=== PATIENT | male | born 1950 | race Caucasian/White ===

== ENCOUNTER → 2018-02-21 | Outpatient (CLI) | payer MEDICARE ==
[2018-02-21 08:57] LABS: ALT 63 U/L (21-72); AST 66 U/L (17-59); Cholesterol 116 mg/dL (<200); HDL Cholesterol 34 mg/dL (40-60); LDL Cholesterol,Calculated 42 mg/dL (0-99); Triglycerides 200 mg/dL (<150)
== END | disposition home or self-care (01) ==
LOC: LABWHC1 08:22
PROVIDERS: ATTEND Internal Medicine Interventional Cardiology
DX: E78.2 Mixed hyperlipidemia (principal)
CPT/HCPCS: 36415; 80061; 84450; 84460

== ENCOUNTER → 2018-03-13 | Outpatient (CLI) | payer MEDICARE ==
[2018-03-13 09:51] LABS: HCT 42.7 % (39.0-53.0); MCH 37.7 pg (25.0-35.0); MCHC 35.1 g/dL (31.0-37.0); MCV 107.3 fL (80.0-100.0); Macrocytosis Moderate; Mean Platelet Volume 8.4; RBC 3.98 m/uL (4.30-5.90); RDW 14.5 % (11.5-15.5)
[2018-03-13 10:01] LABS: Anion Gap 10 mmol/L; Blood Urea Nitrogen 20 mg/dL (9-20); Carbon Dioxide 26 mmol/L (22-30); Chloride 107 mmol/L (98-107); Potassium 5.3 mmol/L (3.5-5.1); Sodium 143 mmol/L (137-145)
[2018-03-13 10:10] LABS: Platelet Count 54 k/uL (150-450)
== END | disposition home or self-care (01) ==
LOC: LABPAT 09:17
PROVIDERS: ATTEND Internal Medicine Interventional Cardiology
DX: Z01.812 Encounter for preprocedural laboratory examination (principal); I25.5 Ischemic cardiomyopathy
CPT/HCPCS: 36415; 80051; 82565; 84520; 85027

== ENCOUNTER 2018-03-29 06:23 | Day surgery (SDC) | payer MEDICARE ==
[2018-03-20 11:10] VITALS: BMI 33.0
[2018-03-29] MEDS ORDERED: SODIUM CHLORIDE 0.9% 1,000 ML in EMPTY BAG 1 BAG IV ONE (06:25)
[2018-03-29] MEDS ORDERED: ASPIRIN 325 MG TAB PO STA (06:25)
[2018-03-29] MEDS ORDERED: NITROGLYCERIN SL TABS 0.4 MG TAB SUBLINGUAL PRN (06:25)
[2018-03-29] MEDS ORDERED: ALPRAZolam 0.5 MG TAB PO PRN (06:25)
[2018-03-29] MEDS ORDERED: ATORVASTATIN 80 MG TAB PO STA (06:25)
[2018-03-29] MEDS ORDERED: ALPRAZolam 0.25 MG TAB PO PRN (06:25)
[2018-03-29 06:44] VITALS: RESP 18; TEMP 97.9
[2018-03-29 07:07] LABS: Glucose,Whole Blood 124 mg/dL (75-99)
[2018-03-29] MEDS ORDERED: LIDOCAINE 2% INJ 20 MG/ML (20 ML MDV) ONE (07:09)
[2018-03-29] MEDS ORDERED: VERAPAMIL 2.5 MG/ML 2 ML AMP ONE (07:11)
[2018-03-29] MEDS ORDERED: diphenhydrAMINE 50 MG/ML 1 ML VIAL ONE (07:24)
[2018-03-29] MEDS ORDERED: fentaNYL (PF) 50 MCG/ML 2 ML AMP ONE (07:24)
[2018-03-29] MEDS ORDERED: fentaNYL (PF) 50 MCG/ML 2 ML AMP IV ONE (07:42)
[2018-03-29] MEDS ORDERED: diphenhydrAMINE 50 MG/ML 1 ML VIAL IVP ONE (07:42)
[2018-03-29] MEDS ORDERED: LIDOCAINE 2% INJ 20 MG/ML SQ ONE (07:45)
[2018-03-29] MEDS ORDERED: VERAPAMIL SYRINGE (5 MG/10 ML) INTRAARTER ONE (07:46)
[2018-03-29] MEDS ORDERED: HEPARIN SODIUM 1,000 UN/ML (10ML VL) ONE (07:52)
[2018-03-29] MEDS ORDERED: IOPAMIDOL-370 125ML BTL INJ ONE (07:57)
[2018-03-29] MEDS ORDERED: SODIUM CHLORIDE 0.9% 1,000 ML IV SCH (08:15)
[2018-03-29] MEDS ORDERED: RX INFO: IV CONTRAST WAS GIVEN 1 EACH MISC MISCELLANE PRN (08:15)
--- NOTE | 2018-03-29 08:53 | CC ---
CARDIAC CATHETERIZATION REPORT Mr. Obrien is a 67-year-old male with known history of diabetes, hypertension, who was noted to have frequent ventricular ectopic activity and he had a myocardial perfusion imaging that revealed global hypokinesis with a fixed inferior wall defect. In view of that, recommendation made regarding cardiac catheterization. The procedure as well as the risks and the complications were discussed with the patient who is in full understanding and agreement. PROCEDURE: Patient was brought to the laboratory veterinarian in the fasting semi-sedated state after receiving fentanyl and Benadryl and achieving moderate conscious sedated state. Using Xylocaine anesthesia in the Seldinger technique, a 6-Bahamian sheath was introduced in the right radial artery. Selective right and left coronary angiography performed using 5-Bahamian 3.5 bend right and left Xiao catheter. Multiple views of the coronary artery including hemiaxial views were obtained. Following that 5-Bahamian tight pigtail catheter was introduced into the left ventricle and a 30-degree DUBON view of the left ventricle was obtained. Following that, the catheter and sheaths were removed. Hemostasis was obtained with deployment of a TR band. There was no immediate complication. Patient was returned to his room in stable condition. Of note, the patient received 5000 units of intravenous heparin as well as intra-arterial verapamil. FINDINGS: LEFT MAIN: This is a large-sized vessel bifurcating into left circumflex and left anterior descending artery. Left main coronary artery without any significant obstructive coronary artery disease. LEFT ANTERIOR DESCENDING ARTERY: This is a large-sized vessel reaching toward the apex with a wraparound apex segment giving rise to a large diagonal branch. The left anterior descending artery has mild intimal disease proximally of 10% to 20% without any evidence of high-grade stenosis. LEFT CIRCUMFLEX: This is a large nondominant vessel giving rise to 3 obtuse marginal branches. The left circumflex has mild plaque proximally of 10% to 20% without any evidence of high-grade stenosis. RIGHT CORONARY ARTERY: This is a large dominant vessel bifurcating in PDA and posterolateral segment and branches. The right coronary artery has a mild plaque approximately of 10% to 20%. The rest of the vessel has no high-grade stenosis. LEFT VENTRICULOGRAM: Left ventriculogram was performed in 30-degree DUBON view and revealed mild global hypokinesis. There was an ejection fraction 50% to 55%. There was no significant mitral regurgitation. HEMODYNAMICS: There was no gradient across the aortic valve. The left ventricle end-diastolic pressure was 14 to 16 mmHg. CONCLUSION: 1. Mild triple-vessel coronary artery disease. 2. Minimally impaired left ventricular systolic function. RECOMMENDATION: In view of finding anatomy, I recommend to continue medical therapy with aggressive coronary risk modification that has been initiated. Those findings and recommendation were discussed with the patient and his family, who are in full understanding and agreement. Duration of procedure is 14 minutes. MMODL / IJN: [id number] /
--- NOTE | 2018-03-29 08:59 | LTR ---
March 29, 2018 Re: Avinash Obrien Dear Dr. Tapia: I had the opportunity to perform cardiac catheterization on Mr. Obrien at [facility] on the 29 of March and a full copy of the procedure note will be forwarded to you. In brief, he was found to have mild triple-vessel coronary artery disease with a minimally impaired left ventricular systolic function and based on those findings, I recommended continue medical therapy with the aggressive coronary risk modification that has been initiated. Thank you again for allowing me the opportunity to participate in his care. Please feel free to call for any questions. Sincerely yours, MD PK PeñaL / BECKYN: [id number] /
[2018-03-29] MEDS ORDERED: NON-FORMULARY DRUG (Aspirin [Adult Low Dose Aspirin Ec] 81 MG) PO SCH (09:00)
[2018-03-29] MEDS ORDERED: BISOPROLOL-HCTZ 5-6.25 MG 1 EACH TAB PO SCH (09:00)
[2018-03-29] MEDS ORDERED: ATORVASTATIN 20 MG TAB PO SCH (09:00)
[2018-03-29] MEDS ORDERED: MOEXIPRIL HCL 15 MG PO SCH (09:00)
[2018-03-29 10:59] VITALS: PULSE 58
[2018-03-29 11:00] VITALS: BP 155/70
== END 2018-03-29 13:00 | disposition home or self-care (01) ==
LOC: CATHCVL 06:23
PROVIDERS: ATTEND Internal Medicine Interventional Cardiology
DX: I25.10 Atherosclerotic heart disease of native coronary artery without angina pectoris (principal); E11.9 Type 2 diabetes mellitus without complications; I49.3 Ventricular premature depolarization; E78.2 Mixed hyperlipidemia; I10 Essential (primary) hypertension; I25.5 Ischemic cardiomyopathy; Z79.82 Long term (current) use of aspirin; Z79.84 Long term (current) use of oral hypoglycemic drugs; Z79.899 Other long term (current) drug therapy
CPT/HCPCS: 93458; J2001; J1200; J3010; J1644; Q9967

== ENCOUNTER → 2018-04-23 | Outpatient (CLI) | payer MEDICARE ==
[2018-04-23 11:11] LABS: ALT 78 U/L (21-72); AST 84 U/L (17-59); Cholesterol 102 mg/dL (<200); HDL Cholesterol 39 mg/dL (40-60); LDL Cholesterol,Calculated 39 mg/dL (0-99); Triglycerides 119 mg/dL (<150)
== END | disposition home or self-care (01) ==
LOC: LABWHC1 10:29
PROVIDERS: ATTEND Internal Medicine Interventional Cardiology
DX: E78.2 Mixed hyperlipidemia (principal)
CPT/HCPCS: 36415; 80061; 84450; 84460

== ENCOUNTER → 2019-07-08 | Outpatient (CLI) | payer MEDICARE ==
[2019-07-08 18:02] LABS: African American GFR (CKD) 101.4 (60.0-200.0); Albumin/Globulin Ratio 1.43 (1.60-3.17); Anion Gap 7.1 mmol/L (4.00-12.00); BUN/Creat Ratio 21.11 Ratio (12.00-20.00); Calcium 9.2 mg/dL (8.7-10.3); Carbon Dioxide 27.9 mmol/L (21.6-31.8); Chol/HDL Ratio 3.05; Globulin 2.8 g/dL (1.6-3.3); LDL Cholesterol,Calculated 54.6 mg/dL (0.0-131.0); Total Bilirubin 2.8 mg/dL (0.2-1.2); Total Protein 6.8 g/dL (6.2-8.2); VLDL Calculation 31.4 mg/dL (5.00-40.00)
== END | disposition home or self-care (01) ==
LOC: LABWHC1 10:04
PROVIDERS: ATTEND Internal Medicine Interventional Cardiology
DX: E78.2 Mixed hyperlipidemia (principal)
CPT/HCPCS: 36415; 80053; 80061

== ENCOUNTER 2019-10-26 09:31 | Inpatient (IN) | payer MEDICARE ==
--- NOTE | 2019-10-26 09:51 | ED ---
General Adult HPI - General Chief complaint: Chest Pain Stated complaint: Chest pain Time Seen by Provider: 10/26/19 09:33 Source: patient, family, RN notes reviewed Mode of arrival: ambulatory Limitations: no limitations - History of Present Illness Initial comments: Patient is a pleasant 69-year-old male presenting to the emergency department with abdominal distention and chest discomfort and dyspnea. Symptoms have been occurring for months, getting somewhat worse. Patient admits to drinking regularly. Patient states his abdomen feels uncomfortable. Patient states he also has some discomfort of lateral lower chest. Patient states discomfort is not severe and has a difficult time describing it. Patient states he has some dyspnea that is minimal at rest but severe with exertion. No history of similar symptoms previously. - Related Data Home Medications Medication Instructions Recorded Confirmed metFORMIN HCL [Glucophage] 500 mg PO PC-SUPPER 12/22/15 03/29/18 Aspirin [Adult Low Dose Aspirin EC] 81 mg PO QAM 03/21/18 03/29/18 Atorvastatin [Lipitor] 20 mg PO DAILY 03/21/18 03/29/18 Bisoprolol-Hctz 5-6.25 mg [Ziac 1 each PO DAILY 03/21/18 03/29/18 5-6.25] Moexipril HCl [Univasc] 15 mg PO BID 03/21/18 03/29/18 metFORMIN HCL [Glucophage] 1,000 mg PO DAILY 03/21/18 03/29/18 Allergies Allergy/AdvReac Type Severity Reaction Status Date / Time No Known Allergies Allergy Verified 10/26/19 09:37 Review of Systems ROS Statement: Those systems with pertinent positive or pertinent negative responses have been documented in the HPI. ROS Other: All systems not noted in ROS Statement are negative. Constitutional: Denies: fever Eyes: Denies: eye pain ENT: Denies: ear pain Respiratory: Reports: as per HPI Cardiovascular: Reports: as per HPI Endocrine: Denies: fatigue Gastrointestinal: Reports: as per HPI. Denies: nausea, vomiting Genitourinary: Denies: dysuria Musculoskeletal: Denies: back pain Skin: Denies: rash Neurological: Denies: weakness Past Medical History Past Medical History: Cancer, Diabetes Mellitus, Hypertension, Osteoarthritis (OA), Sleep Apnea/CPAP/BIPAP History of Any Multi-Drug Resistant Organisms: None Reported Past Surgical History: Hernia Repair Additional Past Surgical History / Comment(s): COLONOSCOY, HYDROCELE REPAIR Past Anesthesia/Blood Transfusion Reactions: No Reported Reaction Past Psychological History: No Psychological Hx Reported Smoking Status: Former smoker Past Alcohol Use History: Daily Past Drug Use History: None Reported - Past Family History Mother Family Medical History: No Reported History General Exam Limitations: no limitations General appearance: alert, in no apparent distress Head exam: Present: normocephalic Eye exam: Present: conjunctival injection (Left side, patient states recent procedure, no discomfort or visual change) ENT exam: Present: normal oropharynx Neck exam: Present: normal inspection Respiratory exam: Present: normal lung sounds bilaterally Cardiovascular Exam: Present: regular rate, normal rhythm Expanded Peripheral pulses: 2+: Radial (R), Radial (L), Dorsalis Pedis (R), Dorsalis Pedis (L) GI/Abdominal exam: Present: distended. Absent: tenderness Extremities exam: Present: pedal edema (+1 on the right). Absent: calf tenderne ss Neurological exam: Present: alert Psychiatric exam: Present: normal affect, normal mood Skin exam: Present: normal color Course Vital Signs 10/26/19 10/26/19 10/26/19 09:34 11:00 11:30 Temperature 97.8 F Pulse Rate 78 77 Respiratory 18 21 Rate Blood Pressure 136/86 131/86 146/92 O2 Sat by Pulse 97 96 96 Oximetry 10/26/19 10/26/19 10/26/19 12:00 12:30 13:00 Temperature Pulse Rate Respiratory Rate Blood Pressure 140/96 137/85 118/70 O2 Sat by Pulse 96 98 98 Oximetry EKG Findings - EKG Comments: EKG Findings:: Sinus rhythm with a rate of 77. PA 146. QRS 106. QT 418. QTC 473. Normal axis. Q wave in lead III. No acute ST change. Medical Decision Making - Medical Decision Making Patient reevaluated and resting comfortably in bed. Patient family updated on results and plan. Case was discussed with Dr. Gamez, who will admit covering for Dr. Monie Rodríguez. - Lab Data Result diagrams: 10/26/19 10:58 10/26/19 10:58 Lab Results 10/26/19 10/26/19 10/26/19 Range/Units 10:58 10:58 10:58 WBC 6.7 (3.8-10.6) k/uL RBC 4.09 L (4.30-5.90) m/uL Hgb 15.1 (13.0-17.5) gm/dL Hct 45.0 (39.0-53.0) % MCV 110.1 H (80.0-100.0) fL MCH 37.1 H (25.0-35.0) pg MCHC 33.7 (31.0-37.0) g/dL RDW 13.5 (11.5-15.5) % Plt Count 90 L (150-450) k/uL Neutrophils % 77 % Lymphocytes % 9 % Monocytes % 9 % Eosinophils % 2 % Basophils % 1 % Neutrophils # 5.2 (1.3-7.7) k/uL Lymphocytes # 0.6 L (1.0-4.8) k/uL Monocytes # 0.6 (0-1.0) k/uL Eosinophils # 0.1 (0-0.7) k/uL Basophils # 0.0 (0-0.2) k/uL Manual Slide Review Performed Poikilocytosis (manual Present Macrocytosis Marked A PT (9.0-12.0) sec INR (<1.2) APTT (22.0-30.0) sec Sodium 139 (137-145) mmol/L Potassium 4.8 (3.5-5.1) mmol/L Chloride 105 (98-107) mmol/L Carbon Dioxide 20 L (22-30) mmol/L Anion Gap 14 mmol/L BUN 67 H (9-20) mg/dL Creatinine 1.40 H (0.66-1.25) mg/dL Est GFR (CKD-EPI)AfAm 59 (>60 ml/min/1.73 sqM) Est GFR (CKD-EPI)NonAf 51 (>60 ml/min/1.73 sqM) Glucose 121 H (74-99) mg/dL Calcium 9.1 (8.4-10.2) mg/dL Magnesium 2.4 H (1.6-2.3) mg/dL Total Bilirubin 2.7 H (0.2-1.3) mg/dL AST 141 H (17-59) U/L ALT 48 (4-49) U/L Alkaline Phosphatase 173 H (38-126) U/L Troponin I (0.000-0.034) ng/mL NT-Pro-B Natriuret Pep 277 pg/mL Total Protein 7.5 (6.3-8.2) g/dL Albumin 3.7 (3.5-5.0) g/dL Amylase 60 (30-110) U/L Lipase 965 H (23-300) U/L 10/26/19 10/26/19 Range/Units 10:58 10:58 WBC (3.8-10.6) k/uL RBC (4.30-5.90) m/uL Hgb (13.0-17.5) gm/dL Hct (39.0-53.0) % MCV (80.0-100.0) fL MCH (25.0-35.0) pg MCHC (31.0-37.0) g/dL RDW (11.5-15.5) % Plt Count (150-450) k/uL Neutrophils % % Lymphocytes % % Monocytes % % Eosinophils % % Basophils % % Neutrophils # (1.3-7.7) k/uL Lymphocytes # (1.0-4.8) k/uL Monocytes # (0-1.0) k/uL Eosinophils # (0-0.7) k/uL Basophils # (0-0.2) k/uL Manual Slide Review Poikilocytosis (manual Macrocytosis PT 12.4 H (9.0-12.0) sec INR 1.2 H (<1.2) APTT 25.4 (22.0-30.0) sec Sodium (137-145) mmol/L Potassium (3.5-5.1) mmol/L Chloride (98-107) mmol/L Carbon Dioxide (22-30) mmol/L Anion Gap mmol/L BUN (9-20) mg/dL Creatinine (0.66-1.25) mg/dL Est GFR (CKD-EPI)AfAm (>60 ml/min/1.73 sqM) Est GFR (CKD-EPI)NonAf (>60 ml/min/1.73 sqM) Glucose (74-99) mg/dL Calcium (8.4-10.2) mg/dL Magnesium (1.6-2.3) mg/dL Total Bilirubin (0.2-1.3) mg/dL AST (17-59) U/L ALT (4-49) U/L Alkaline Phosphatase (38-126) U/L Troponin I <0.012 (0.000-0.034) ng/mL NT-Pro-B Natriuret Pep pg/mL Total Protein (6.3-8.2) g/dL Albumin (3.5-5.0) g/dL Amylase (30-110) U/L Lipase (23-300) U/L - Radiology Data Radiology results: report reviewed (Ultrasound negative for DVT), image reviewed (Chest and abdominal x-ray shows no acute process) Disposition Clinical Impression: Ascites, Pancreatitis, Chest pain Disposition: ADMITTED IP TO THIS HOSP Is patient prescribed a controlled substance at d/c from ED?: No Referrals: Monie Tapia MD [Primary Care Provider] - 1-2 days Decision Time: 13:37
[2019-10-26 11:17] LABS: INR 1.2 (<1.2); Partial Thromboplastin Time 25.4 sec (22.0-30.0); Prothrombin Time 12.4 sec (9.0-12.0)
[2019-10-26 11:19] LABS: Albumin 3.7 g/dL (3.5-5.0); Calcium 9.1 mg/dL (8.4-10.2); Magnesium 2.4 mg/dL (1.6-2.3); Potassium 4.8 mmol/L (3.5-5.1); Total Bilirubin 2.7 mg/dL (0.2-1.3); Total Protein 7.5 g/dL (6.3-8.2)
--- NOTE | 2019-10-26 11:40 | XR ---
EXAMINATION TYPE: XR chest 2V DATE OF EXAM: 10/26/2019 COMPARISON: 06/06/2016 TECHNIQUE: PA and lateral views submitted. HISTORY: Chest pain FINDINGS: The lungs are clear and there is no pneumothorax, pleural effusion, or focal pneumonia. There is li mited inspiration. Heart size is stable. No overt failure. Hypertrophic and degenerative change of th e spine noted. IMPRESSION: 1. No acute process.
--- NOTE | 2019-10-26 11:40 | XR ---
EXAMINATION TYPE: XR abdomen 1V DATE OF EXAM: 10/26/2019 COMPARISON: NONE HISTORY: Abdominal pain and distention TECHNIQUE: One view abdominal series FINDINGS: The osseous structures are intact. The bowel gas pattern is nonspecific. Hypertrophic change of the spine noted. IMPRESSION: 1. Nonspecific abdomen.
[2019-10-26 11:48] LABS: Basophils % (A) 1 %; Eosinophils # (A) 0.1 k/uL (0-0.7); Eosinophils % (A) 2 %; HGB 15.1 gm/dL (13.0-17.5); Lymphocytes # (A) 0.6 k/uL (1.0-4.8); Lymphocytes % (A) 9 %; MCH 37.1 pg (25.0-35.0); MCHC 33.7 g/dL (31.0-37.0); MCV 110.1 fL (80.0-100.0); Macrocytosis Marked; Mean Platelet Volume 8.3; Monocytes # (A) 0.6 k/uL (0-1.0); Monocytes % (A) 9 %; Neutrophils # (A) 5.2 k/uL (1.3-7.7); Neutrophils % (A) 77 %; RBC 4.09 m/uL (4.30-5.90); RDW 13.5 % (11.5-15.5); WBC 6.7 k/uL (3.8-10.6)
[2019-10-26 12:01] LABS: Platelet Count 90 k/uL (150-450); Poikilocytosis (M) Present
--- NOTE | 2019-10-26 12:30 | US ---
EXAMINATION TYPE: US venous doppler duplex LE RT DATE OF EXAM: 10/26/2019 9:49 AM COMPARISON: NONE CLINICAL HISTORY: swellimg. Chest pain, right leg swelling SIDE PERFORMED: Right TECHNIQUE: The lower extremity deep venous system is examined utilizing real time linear array sonog gibran with graded compression, doppler sonography and color-flow sonography. VESSELS IMAGED: External Iliac Vein (EIV) Common Femoral Vein Deep Femoral Vein Greater Saphenous Vein * Femoral Vein Popliteal Vein Small Saphenous Vein * Proximal Calf Veins (* superficial vessels) Right Leg: Appears negative for DVT IMPRESSION: Grayscale, color doppler, spectral doppler imaging performed of the deep veins of the lo wer extremities. There is normal flow, compressibility, vascular waveforms.
[2019-10-26] MEDS ORDERED: MORPHINE SULFATE 4 MG/ML SYRINGE IV PRN (13:37)
[2019-10-26] MEDS ORDERED: NALOXONE 0.4 MG/ML 1 ML VIAL IV PRN (13:37)
[2019-10-26 17:14] LABS: Glucose,Whole Blood 132 mg/dL (75-99)
[2019-10-26] MEDS ORDERED: LORazepam 2 MG/ML INJ IV PRN ×3 (17:49)
[2019-10-26] MEDS: metFORMIN 500 MG TAB PO SCH (18:02)
[2019-10-26] MEDS: SODIUM CHLORIDE 0.9% 1,000 ML IV SCH (18:02)
[2019-10-26] MEDS ORDERED: HYDROcodone/APAP 5-325MG 1 EACH TAB PO PRN (19:39)
--- NOTE | 2019-10-26 22:53 | HP ---
HISTORY AND PHYSICAL DATE OF SERVICE: 10/26/2019 CHIEF COMPLAINT: Abdominal pain and distention. HISTORY OF PRESENT ILLNESS: This 69-year-old gentleman with a past medical history of significant alcohol intake, history of diabetes, hypertension, skin cancer, recently being followed by Dr. Monie Tapia in the outpatient setting complaining of abdominal pain and distention. More distention for the last 2 months. The patient did not seek medical attention because he was busy with treating skin cancer just below the left eye. The patient apparently drinks about a bottle of wine a day almost and because of increasing difficulty, the patient came to [facility] and was admitted for further evaluation and treatment. The patient had multiple abnormalities. There is no history of fever, rigors or chills. No history of headache, loss of consciousness, seizures. PAST MEDICAL HISTORY: History of diabetes type 2, hypertension, history of sleep apnea, history of nicotine dependence. MEDICATIONS: Prior to admission include: 1. Glucophage 1000 mg p.o. daily and 500 mg with supper. 2. Univasc 15 mg p.o. b.i.d. 3. Ziac 5/6.25 mg 1 p.o. daily. 4. Lipitor 20 mg daily. 5. Aspirin 81 mg. ALLERGIES: None. FAMILY HISTORY: No history of heart disease or strokes in the family. SOCIAL HISTORY: Previous history of smoking. History of alcohol as mentioned earlier. REVIEW OF SYSTEMS: ENT as mentioned earlier. CARDIOVASCULAR: No angina or palpitations. RESPIRATION: No cough. GI as mentioned earlier. no dysuria. NERVOUS SYSTEM: No numbness or weakness. ALLERGY/IMMUNOLOGY: No asthma or hayfever. MUSCULOSKELETAL as mentioned earlier. HEMATOLOGY/ONCOLOGY: As mentioned earlier. ENDOCRINE: History of diabetes. No hypothyroidism. CONSTITUTIONAL: As mentioned earlier. DERMATOLOGY: Negative. RHEUMATOLOGY: Negative. PSYCHIATRIC: As mentioned earlier. PHYSICAL EXAMINATION: Alert and oriented times three. Pulse 82, blood pressure 137/75, respiration 20, temperature 98.7, pulse ox 94% on room air. HEENT is conjunctivae normal. Oral mucosa moist. NECK is no jugular venous distention. No carotid bruit. No lymph node enlargement. Cardiovascular system: S1, S2 muffled. No S3, no S4. RESPIRATORY: Breath sounds diminished in the bases. Scattered rhonchi. No crackles. ABDOMEN: Soft, diffusely distended, tense ascites. Some hard mass also felt, umbilicus is full. Minimal hard mass felt in the left lower quadrant. LEGS: Minimal edema. NERVOUS SYSTEM: Higher functions as mentioned. Moves all four limbs. No focal deficits. Lymphatics: No lymph nodes palpable in the neck, axillae or groin. SKIN: No ulcer, no rashes and no bleeding. JOINTS: No active deforming arthropathy. LABS: WBC 6.7, hemoglobin 15.2, MCV 110, platelets 90. INR is 1.2. Sodium 139, potassium 4.8, creatinine is 1.40. Magnesium is 2.4, bilirubin 2.7. Other labs are noted. Lipase is 965, amylase 60. ASSESSMENT: 1. Tense ascites, possibly secondary to cirrhosis of the liver and rule out malignancy. 2. Possible chronic liver disease. 3. Increased creatinine with possible acute renal failure possibly prerenal renal failure. 4. Elevated bilirubin and AST with alcoholic hepatitis. 5. Increased alkaline phosphatase. 6. Increased lipase, normal amylase with possibly mild acute pancreatitis. 7. Coagulopathy secondary to chronic liver disease. 8. Thrombocytopenia possibly secondary to chronic liver disease. 9. Increased MCV. 10.History of recent skin cancer, left face below the eye. 11.Diabetes mellitus type 2. 12.Hypertension. 13.History of sleep apnea. 14.History of hernia repair. 15.Remote history of nicotine dependence. 16.Obesity with body mass index 30.3. RECOMMENDATIONS AND DISCUSSION: This 69-year-old gentleman who presented with multiple complex medical issues, we will monitor the patient closely, continue the current medications, management and symptomatic treatment. Otherwise, I would recommend a CT scan of the abdomen and pelvis with only p.o. contrast and no IV contrast. Gastroenterology consultation for possible endoscopies. I would recommend ascitic aspiration with Interventional Radiology with the fluid analysis to be sent for cytology, culture, WBC. Overall prognosis guarded because of multiple complex medical issues. Further recommendations to follow. A copy of this dictation being forwarded to Dr. Monie Tapia, who is the primary physician. The chest x-ray was done which showed no acute process. Abdominal ultrasound has also been ordered and venous study, ultrasound of the leg showed no evidence of DVT. See orders for details. Prognosis guarded. Discussed with the patient who understands and agrees. We will also recommend [facility] protocol also. MMODL / IJN: [id number] / ADAM
[2019-10-27 07:12] LABS: Glucose,Whole Blood 100 mg/dL (75-99)
[2019-10-27] MEDS: INSULIN ASPART (NovoLOG) 100 UNIT/ML VIAL SQ SCH ×4 (07:42→20:47)
[2019-10-27] MEDS: IOPAMIDOL CONTRAST (ORAL USE) VIAL PO PRN ×2 (08:30→09:35)
[2019-10-27] MEDS: ATORVASTATIN 20 MG TAB PO SCH (08:31)
[2019-10-27] MEDS: BISOPROLOL-HCTZ 5-6.25 MG 1 EACH TAB PO SCH (08:31)
[2019-10-27] MEDS: metFORMIN 500 MG TAB PO SCH ×2 (08:31→15:53)
[2019-10-27] MEDS: LISINOPRIL 20 MG TAB PO SCH (08:31)
[2019-10-27] MEDS: PANTOPRAZOLE 40 MG/10 ML VIAL IV SCH (08:32)
[2019-10-27] MEDS: ASPIRIN 81 MG PO SCH (08:32)
--- NOTE | 2019-10-27 08:35 | US ---
EXAMINATION TYPE: US gallbladder DATE OF EXAM: 10/27/2019 COMPARISON: US CLINICAL HISTORY: Ascites and pancreatitis, evaluate pancreas also. Pancreatitis, ascites EXAM MEASUREMENTS: Liver Length: 14.7 cm Gallbladder Wall: 0.6 cm CBD: 0.8 cm Right Kidney: 11.3 x 5.7 x 5.6 cm Pancreas: Obscured by bowel gas Liver: Left lobe enlarged, heterogeneous, possible solid/hypoechoic lesion right lobe= 4.7 x 3.5 x 4 .4 cm/ Cyst right/lateral lobe= 1.4 x 1.4 cm Gallbladder: thickened wall Evidence for sonographic Arias's sign: No CBD: Dilated Right Kidney: wnl Perihepatic ascites present IMPRESSION: 1. Suspicious right hepatic lobe lesion measuring 4.7 cm. Three-phase CT or enhanced MRI abdomen are recommended for further characterization as hepatomas a possibility. 2. Cirrhotic morphology of the liver with perihepatic ascites. 3. Thickened gallbladder wall may relate to the adjacent hepatocellular disease or ascites. However t he common bile duct is also dilated therefore recommendation is for correlation with serum laboratory values to determine the need for HIDA scan to exclude acute cholecystitis.
[2019-10-27 09:19] LABS: ALT 39 U/L (4-49); AST 102 U/L (17-59); African American GFR (CKD) 73 (>60 ml/min/1.73 sqM); Alkaline Phosphatase 123 U/L (38-126); Amylase <30 U/L (30-110); Anion Gap 9 mmol/L; Blood Urea Nitrogen 58 mg/dL (9-20); Calcium 8.9 mg/dL (8.4-10.2); Carbon Dioxide 23 mmol/L (22-30); Chloride 106 mmol/L (98-107); Glucose 108 mg/dL (74-99); Non-African American GFR(CKD) 63 (>60 ml/min/1.73 sqM); Sodium 138 mmol/L (137-145); Total Bilirubin 2.4 mg/dL (0.2-1.3); Total Protein 6.4 g/dL (6.3-8.2)
[2019-10-27 09:25] LABS: Basophils % (A) 0 %; Eosinophils # (A) 0.1 k/uL (0-0.7); Eosinophils % (A) 2 %; HCT 40.5 % (39.0-53.0); HGB 13.3 gm/dL (13.0-17.5); Lymphocytes # (A) 0.6 k/uL (1.0-4.8); Lymphocytes % (A) 11 %; MCH 36.6 pg (25.0-35.0); MCHC 32.9 g/dL (31.0-37.0); MCV 111.1 fL (80.0-100.0); Macrocytosis Marked; Mean Platelet Volume 8.7; Monocytes # (A) 0.8 k/uL (0-1.0); Monocytes % (A) 16 %; Neutrophils # (A) 3.6 k/uL (1.3-7.7); Neutrophils % (A) 67 %; RBC 3.64 m/uL (4.30-5.90); RDW 13.4 % (11.5-15.5); WBC 5.3 k/uL (3.8-10.6)
[2019-10-27 09:27] LABS: INR 1.3 (<1.2); Prothrombin Time 13.4 sec (9.0-12.0)
[2019-10-27 09:37] LABS: Platelet Count 75 k/uL (150-450)
--- NOTE | 2019-10-27 10:36 | CT ---
EXAMINATION TYPE: CT abdomen pelvis wo con DATE OF EXAM: 10/27/2019 HISTORY: Abdominal discomfort with distention CT DLP: 1294.8 mGycm. Automated Exposure Control for Dose Reduction was Utilized. TECHNIQUE: CT scan of the abdomen and pelvis is performed with oral but without IV contrast. COMPARISON: CT abdomen November 25, 2014. Gallbladder ultrasound earlier today FINDINGS: Within the limitations of a non-contrast study, the following observations are made. LUNG BASES: Right basilar linear scarring and/or atelectasis. LIVER/GB: Liver is now overall somewhat small in size especially right hepatic lobe with lobulated pe ripheral margin consistent with underlying cirrhosis. New nonspecific subcentimeter lesion right hepa tic lobe axial image 27 is too small to further characterize. This likely corresponds to the 1.4 cm s imple appearing thin-walled cyst on ultrasound image 36. Nonspecific 2.5 x 1.0 cm heterogeneous hypoe choic lesion inferior to this image 31 noted. I do not see larger lesion right hepatic lobe to corres pond to ultrasound. Vague area of low attenuation left hepatic lobe favors diffuse fatty infiltration anteriorly with some left lobe hypertrophy thought present. Gallbladder shows no suspicious wall thi ckening or intraluminal CT dense gallstones. No suspicious intrahepatic or extra hepatic biliary dila tation. PANCREAS: No significant abnormality is seen. SPLEEN: Splenomegaly redemonstrated at 15.2 cm long axis coronal image 90. ADRENALS: No significant abnormality is seen. KIDNEYS: No renal calculi or hydronephrosis bilaterally. Poorly distended bladder. BOWEL: No suspicious small or large bowel dilatation. GENITAL ORGANS: Upper limits of normal in size bulging on bladder base. LYMPH NODES: No greater than 1cm abdominal or pelvic lymph nodes are appreciated. OSSEOUS STRUCTURES: No significant abnormality is seen. OTHER: Moderate amount of abdominal and pelvic ascites. IMPRESSION: Cirrhosis with evidence of underlying portal vein hypertension as there is splenomegaly a nd moderate amount of abdominal and pelvic ascites. Do not see lesion approaching 5 cm to correspond to area of concern on ultrasound with do see a nonspecific 2.5 cm lesion in which solid mass or neopl asm cannot be excluded. Multiphase contrast-enhanced liver protocol CT or MRI nonemergent follow-up a dvised.
[2019-10-27 10:57] LABS: Hepatitis A Antibody IgM Non-Reactive (Non-Reactive); Hepatitis B Core IgM Non-Reactive (Non-Reactive); Hepatitis B Surface Antigen Non-Reactive (Non-Reactive); Hepatitis C IgG Antibody Non-Reactive (Non-Reactive)
[2019-10-27 12:07] VITALS: RESP 16
[2019-10-27 12:49] LABS: Glucose,Whole Blood 129 mg/dL (75-99)
--- NOTE | 2019-10-27 13:05 | US ---
Therapeutic paracentesis. DATE OF EXAM: 10/27/2019 CLINICAL HISTORY: Ascites The procedure was discussed with the patient. The risks, complications, benefits, and alternatives we re discussed and any questions were answered. Informed consent was obtained. The patient was placed s upine on the ultrasound table and prepped and draped in the usual sterile fashion. All elements of maximal barrier technique were utilized. Under ultrasound guidance, access into the right lower quadrant was obtained, via the paracentesis catheter system and direct ultrasound guidanc e. Approximately 5.1 liters of straw-colored fluid was removed. The patient was stable throughout the pr ocedure and remained stable upon discharge from Department of Radiology. Sample sent to pathology for analysis. IMPRESSION: Successful therapeutic and diagnostic paracentesis under ultrasound guidance.
[2019-10-27] MEDS: SODIUM CHLORIDE 0.9% 1,000 ML IV SCH (14:51)
[2019-10-27 15:08] LABS: Albumin, Fluid Source Ascites
[2019-10-27 15:20] LABS: Appearance,BF Clear; Color,BF Yellow; Nucleated Cells, Body Fluid 170 /uL; RBC, Body Fluid 1030 /uL
[2019-10-27 15:25] LABS: Mononuclear WBC,Body Fluid 85 %; Polynuclear WBC,Body Fluid 15 %; Total Cells Counted,Body Fluid 100
[2019-10-27 17:03] LABS: Glucose,Whole Blood 200 mg/dL (75-99)
[2019-10-27 20:53] LABS: Glucose,Whole Blood 111 mg/dL (75-99)
[2019-10-27 21:04] LABS: Total Protein, Body Fluid 1380 mg/dL
[2019-10-27] MEDS: SPIRONOLACTONE 25 MG TAB PO SCH (23:19)
--- NOTE | 2019-10-28 01:23 | PN ---
PROGRESS NOTE DATE OF SERVICE: 10/27/2019 This 69-year-old gentleman who was admitted with tense ascites possibly secondary to liver cirrhosis is being closely monitored at this time. CT scan of the abdomen and pelvis revealed multiple abnormalities; however, ultrasound did not show any focal abnormalities in the liver. Will need outpatient followup. Otherwise, paracentesis and 5.1 L of straw-colored fluid was removed at this time. The patient is being closely monitored. No chest pain. No palpitations. The patient is being started on Lasix and Aldactone. Past medical history reviewed. REVIEW OF SYSTEMS: CARDIOVASCULAR SYSTEM: No angina, palpitations. RESPIRATORY SYSTEM: As mentioned earlier. GI: As mentioned earlier. : No dysuria or retention. NERVOUS SYSTEM: No numbness, weakness. CURRENT MEDICATIONS: Reviewed. They include: 1. [place] 5 mg q.6 p.r.n. 2. Aspirin 81 mg. 3. Lipitor 20 mg. 4. Ziac. 5. Zestril. 6. Ativan. 7. Glucophage. 8. Protonix. 9. Narcan. PHYSICAL EXAMINATION: Patient is alert, oriented x3. Pulse is 73, blood pressure 107/65, respiration 20, temperature normal, pulse ox 96% on room air. HEENT: Conjunctivae normal. Oral mucosa moist. NECK: No jugular venous distention. No carotid bruit. No lymph node enlargement. CARDIOVASCULAR SYSTEM: S1, S2 muffled. RESPIRATORY SYSTEM: Breath sounds diminished at the bases. Bilateral scattered rhonchi and crackles. ABDOMEN: Soft. Significant ascites present. LEGS: No edema. No swelling. NERVOUS SYSTEM: No focal deficit. LABS: WBC 3.3, hemoglobin 13.3, INR 1.3. Otherwise, total bilirubin is 2.4. The ascitic fluid was showing total of 1.38, which is a transudate. ASSESSMENT: 1. Tense ascites, possibly secondary to cirrhosis of the liver, status post abdominal paracentesis with 5.1 L. 2. Possible chronic liver disease. 3. Increased creatinine with possible acute renal failure, possibly prerenal renal failure with acute tubular necrosis. 4. Elevated bilirubin and AST with alcoholic hepatitis. 5. Increased alkaline phosphatase. 6. Increased lipase. 7. Normal amylase with possible mild acute pancreatitis. 8. Coagulopathy secondary to chronic liver disease. 9. Thrombocytopenia, possibly secondary to chronic liver disease. 10.Increased mean corpuscular volume. 11.History of recent skin cancer, left face below the eye surgery. 12.Diabetes mellitus, type 2. 13.Hypertension. 14.History of sleep apnea. 15.History of hernia repair. 16.Remote history of nicotine dependence. 17.Obesity with body mass index of 32.3. RECOMMENDATIONS AND DISCUSSION: I recommend to continue current medications, continue with the monitoring, symptomatic treatment. Will initiate diuretics. Continue the rest of the medications. Await full cytology and full details of the fluid. Closely follow with Gastroenterology. I recommend close followup with Dr. Monie Tapia in the outpatient setting. Otherwise, continue to monitor. Further recommendations to follow. MMODL / IJN: [id number] / MTDD
[2019-10-28 04:32] VITALS: BP 115/56; PULSE 69; TEMP 97.6
[2019-10-28 07:49] LABS: Glucose,Whole Blood 97 mg/dL (75-99)
[2019-10-28] MEDS: INSULIN ASPART (NovoLOG) 100 UNIT/ML VIAL SQ SCH (08:28)
[2019-10-28] MEDS ORDERED: FUROSEMIDE 40 MG TAB PO SCH (09:00)
[2019-10-28 09:49] LABS: Basophils % (A) 0 %; Eosinophils # (A) 0.2 k/uL (0-0.7); Eosinophils % (A) 4 %; HCT 39.6 % (39.0-53.0); HGB 13.3 gm/dL (13.0-17.5); Lymphocytes # (A) 0.6 k/uL (1.0-4.8); Lymphocytes % (A) 12 %; MCH 37.4 pg (25.0-35.0); MCHC 33.7 g/dL (31.0-37.0); MCV 111.1 fL (80.0-100.0); Macrocytosis Marked; Monocytes # (A) 0.7 k/uL (0-1.0); Monocytes % (A) 15 %; Neutrophils # (A) 3.2 k/uL (1.3-7.7); Neutrophils % (A) 67 %; RBC 3.56 m/uL (4.30-5.90); RDW 13.5 % (11.5-15.5); WBC 4.7 k/uL (3.8-10.6)
[2019-10-28 09:54] LABS: Platelet Count 72 k/uL (150-450)
[2019-10-28 09:58] LABS: ALT 39 U/L (4-49); AST 88 U/L (17-59); African American GFR (CKD) >90 (>60 ml/min/1.73 sqM); Albumin 2.7 g/dL (3.5-5.0); Alkaline Phosphatase 109 U/L (38-126); Anion Gap 7 mmol/L; Blood Urea Nitrogen 44 mg/dL (9-20); Calcium 8.6 mg/dL (8.4-10.2); Carbon Dioxide 24 mmol/L (22-30); Chloride 108 mmol/L (98-107); Glucose 96 mg/dL (74-99); Non-African American GFR(CKD) 83 (>60 ml/min/1.73 sqM); Potassium 4.6 mmol/L (3.5-5.1); Sodium 139 mmol/L (137-145); Total Protein 5.8 g/dL (6.3-8.2)
[2019-10-28 10:38] LABS: Anisocytosis (M) Present
[2019-10-28] MEDS: metFORMIN 500 MG TAB PO SCH (11:50)
[2019-10-28] MEDS: ATORVASTATIN 20 MG TAB PO SCH (11:50)
[2019-10-28] MEDS: ASPIRIN 81 MG PO SCH (11:50)
[2019-10-28] MEDS: BISOPROLOL-HCTZ 5-6.25 MG 1 EACH TAB PO SCH (11:50)
[2019-10-28] MEDS: LISINOPRIL 20 MG TAB PO SCH (11:50)
[2019-10-28] MEDS: SPIRONOLACTONE 25 MG TAB PO SCH (11:51)
[2019-10-28] MEDS: PANTOPRAZOLE 40 MG/10 ML VIAL IV SCH (11:51)
--- NOTE | 2019-10-28 11:53 | P.PN ---
Progress Note - Text Progress Note Date: 10/28/19 Patient seen and evaluated sitting up, dresses and ready for discharge. Discussed with patient overall findings on computed tomography scan of the abdomen and ultrasound of abdomen require further imaging of an MR/MRCP. Unfortunately the patient was unable to have the MR/MRCP completed due to his abdominal circumference. Dr. Schroeder and Dr. Lai felt patient could be discharged and follow-up in outpatient setting. Discussed with patient elevated alpha-fetoprotein and the importance of follow-up with Dr. Lai and his PCP Dr. Tapia, and may in future consult to oncology. Discussed with the patient importance of alcohol cessation, need for MR/MRCP as soon as possible as an outpatient. Dr. Schroeder gave patient list of MRI facilities for patient to call, I gave the patient written order for MRI with and without contrast/MRCP. The patient verbalized understanding. The above dictated assessment and findings were discussed with Dr. Lai. The impression and plan of care have been directed as dictated.
--- NOTE | 2019-10-29 01:33 | DS ---
DISCHARGE SUMMARY DATE OF SERVICE: 10/28/2019. FINAL DIAGNOSES: 1. Tense ascites, possibly secondary to cirrhosis of the liver status post abdominal paracentesis of 5.1 L. 2. Possible chronic liver disease. 3. Increased creatinine with possible acute renal failure possibly prerenal acute renal failure with acute tubular necrosis. 4. Elevated bilirubin and AST with alcoholic hepatitis. 5. Increased alkaline phosphatase. 6. Increased lipase. 7. Normal amylase with possible mild pancreatitis. 8. Coagulopathy secondary to chronic liver disease. 9. Thrombocytopenia possibly secondary to chronic liver disease. 10.Increased MCV. 11.History of recent skin cancer, left face surgery below the eye. 12.Diabetes mellitus type 2. 13.Hypertension. 14.History of sleep apnea. 15.History of hernia repair. 16.Remote history of nicotine dependence. 17.Obesity with body mass index of 32.3. DISCHARGE DISPOSITION: The patient being discharged in stable condition with guarded prognosis. HISTORY OF PRESENT ILLNESS: This 69-year-old gentleman with a past medical history of multiple medical problems was admitted with significant distention of the abdomen. The patient was followed by Dr. Monie Tapia. Chronic liver disease and alcohol ascites secondary to alcohol was considered. Patient treated symptomatically. Ascitic paracentesis 5.1 L is being aspirated. Final cytology is pending at this time. Otherwise, abdominal fluid appears to be transudate at this time. On exam, vitals are stable. Cardiovascular S1, S2. Abdomen soft. Minimal ascites. Nervous System: No focal deficits. DISCHARGE ADVICE AND MEDICATIONS: 1. Diet is cardiac diet. 2. Activity limited until followup. 3. Follow up with Dr. Monie Tapia in 2-3 days. 4. Follow up with Dr. Lai in 1 week. DISCHARGE MEDICATIONS: 1. Ecotrin 81 mg p.o. daily. 2. Glucophage 500 mg as before supper and 1000 mg daily. 3. Lipitor 10 mg p.o. daily. 4. Univasc 15 mg p.o. b.i.d. 5. bisoprolol hydrochlorothiazide 5.6/25 mg p.o. daily. 6. Aldactone 25 mg p.o. b.i.d. 7. Lasix 40 mg p.o. b.i.d. Once again, the patient will be discharged in stable condition with guarded prognosis. MMODL / IJN: [id number] / ADAM
--- NOTE | 2019-11-03 13:25 | CDI ---
Documentation Clarification Form Date: 11/03/2019 From: Renetta Grier Phone: If you have a question about this query, please contact Kelsie Hardin, [employer] at [phone] between 8am and 5pm. Admit Date: 10/26/19 Discharge Date: 10/28/19 Patient Name: Avinash Obrien Visit Number: [id number] ATTENTION: The Clinical Documentation Specialists (CDI) and [employer] Coding Staff appreciate your assistance in clarifying documentation. Please respond to the clarification below the line at the bottom and electronically sign. The CDI & [employer] Coding staff will review the response and follow-up if needed. Please note: Queries are made part of the Legal Health Record. If you have any questions, please contact the author of this message via ITS. Dear Dr. Akilah Woods The patient presented with tense ascites, possibly secondary to cirrhosis of the liver, history of daily alcohol use. History/Risk Factors: Alcohol use, possible chronic liver disease, alcoholic hepatitis Clinical Indicators: abdominal pain and distention Lab findings: AST 131, ALT 48, Alk Phos 173, Bilirubin 2.7 Radiology findings: Abdomen 10/27: Cirrhosis with evidence of underlying portal vein hypertension, splenomegaly, moderate amount of abdominal and pelvic ascites. Other Clinical Indicators: Treatment: Paracentesis, patient counseled about alcohol use In your professional opinion, can you please clarify if cirrhosis is due to? Alcohol Other, please specify Unable to determine Please also clarify the patient's alcohol use as Abuse Dependence Other, please specify Unable to determine In your professional opinion, can you please clarify if cirrhosis is due to? Alcohol alcohol use as Dependence MTDD
== END 2019-10-28 11:51 | disposition home or self-care (01) | DRG 432 ==
LOC: EC 09:31 → 5NMEDONC 13:37 → 6NMEDSUR 15:30
PROVIDERS: ADMIT Internal Medicine; ATTEND Internal Medicine
PROC: 0W9G3ZZ Drainage of Peritoneal Cavity, Percutaneous Approach (ICD-10-PCS; principal; 2019-10-27)
DX: K70.31 Alcoholic cirrhosis of liver with ascites (principal); K85.90 Acute pancreatitis without necrosis or infection, unspecified; N17.0 Acute kidney failure with tubular necrosis; D68.4 Acquired coagulation factor deficiency; D69.6 Thrombocytopenia, unspecified; K70.11 Alcoholic hepatitis with ascites; F10.20 Alcohol dependence, uncomplicated; E11.9 Type 2 diabetes mellitus without complications; E66.9 Obesity, unspecified; I10 Essential (primary) hypertension; G47.30 Sleep apnea, unspecified; M19.90 Unspecified osteoarthritis, unspecified site; R07.89 Other chest pain; E78.5 Hyperlipidemia, unspecified; Z68.32 Body mass index [BMI] 32.0-32.9, adult; Z79.82 Long term (current) use of aspirin; Z79.84 Long term (current) use of oral hypoglycemic drugs; Z79.899 Other long term (current) drug therapy; Z87.891 Personal history of nicotine dependence; Z85.828 Personal history of other malignant neoplasm of skin; Z71.41 Alcohol abuse counseling and surveillance of alcoholic
CPT/HCPCS: 36415; 49083; 71046; 74018; 74176; 76705; 80053; 80074; 82042; 82105; 82140; 82150; 83690; 83735; 83880; 84157; 84484; 85025; 85610; 85730; 87070; 87075; 87205; 88108; 88305; 89050; 93005; 94760; 99285

== ENCOUNTER → 2019-10-30 | Outpatient (CLI) | payer MEDICARE ==
[2019-10-30 16:20] LABS: Basophils # (A) 0.1 k/uL (0-0.2); Basophils % (A) 2 %; Eosinophils # (A) 0.2 k/uL (0-0.7); Eosinophils % (A) 2 %; HCT 46.5 % (39.0-53.0); HGB 15.3 gm/dL (13.0-17.5); Lymphocytes # (A) 1.2 k/uL (1.0-4.8); Lymphocytes % (A) 14 %; MCH 37.4 pg (25.0-35.0); MCV 113.4 fL (80.0-100.0); Macrocytosis Marked; Mean Platelet Volume 8.7; Monocytes # (A) 1.1 k/uL (0-1.0); Monocytes % (A) 13 %; Neutrophils # (A) 5.9 k/uL (1.3-7.7); Neutrophils % (A) 67 %; Platelet Count 103 k/uL (150-450); RDW 13.5 % (11.5-15.5); WBC 8.8 k/uL (3.8-10.6)
[2019-10-30 23:56] LABS: African American GFR (CKD) 54.3 (60.0-200.0); Albumin 3.6 g/dL (3.80-4.90); Albumin/Globulin Ratio 1.29 (1.60-3.17); Anion Gap 9.6 mmol/L (4.00-12.00); BUN/Creat Ratio 33.33 Ratio (12.00-20.00); Calcium 8.7 mg/dL (8.7-10.3); Carbon Dioxide 22.4 mmol/L (21.6-31.8); Globulin 2.8 g/dL (1.6-3.3); Non-African American GFR(CKD) 46.8 (60.0-200.0); Potassium 5.1 mmol/L (3.5-5.5); Total Bilirubin 2.2 mg/dL (0.2-1.2); Total Protein 6.4 g/dL (6.2-8.2)
== END | disposition home or self-care (01) ==
LOC: LABWHC1 15:11
PROVIDERS: ATTEND Hospitalist
DX: D64.9 Anemia, unspecified (principal)
CPT/HCPCS: 36415; 80053; 85025

== ENCOUNTER 2019-11-10 15:07 | Inpatient (IN) | payer MEDICARE ==
[2019-11-10] MEDS ORDERED: SODIUM CHLORIDE 0.9% 1,000 ML IV STA (16:05)
[2019-11-10] MEDS ORDERED: MORPHINE SULFATE 4 MG/ML SYRINGE IVP STA (16:08)
--- NOTE | 2019-11-10 16:09 | ED ---
General Adult HPI <Ronny Rawls - Last Filed: 11/10/19 18:13> - General Source: patient, RN notes reviewed, old records reviewed Mode of arrival: ambulatory Limitations: no limitations <Joann Hines - Last Filed: 11/10/19 18:37> - General Chief complaint: Shortness of Breath Stated complaint: stomach drain Time Seen by Provider: 11/10/19 15:48 - History of Present Illness Initial comments: Patient is a pleasant 69-year-old male with history of alcoholism with history of cirrhosis and ascites. He presents today for concerns for abdominal distention. Requesting paracentesis. Patient reports that he was admitted approximately 2 weeks ago and had paracentesis done at that time. Patient repor ts he try to schedule upcoming appointments with GI doctor a lot she however has been unsuccessful in contacting him. Patient reports that he has been worse having worsening shortness of breath with exertion due to the amount of fluid on his abdomen pressing on his diaphragm and chest. Patient reports that he has chest discomfort but relates this all to his abdominal distention. Patient states that he's had no significant coughing. He reports that he has quit drinking. (Joann Hines) - Related Data Home Medications Medication Instructions Recorded Confirmed metFORMIN HCL [Glucophage] 500 mg PO PC-SUPPER 12/22/15 11/10/19 Aspirin [Adult Low Dose Aspirin EC] 81 mg PO DAILY 03/21/18 11/10/19 Atorvastatin [Lipitor] 20 mg PO DAILY 03/21/18 11/10/19 Bisoprolol-Hctz 5-6.25 mg [Ziac 1 tab PO DAILY 03/21/18 11/10/19 5-6.25 MG] Moexipril HCl [Univasc] 15 mg PO BID 03/21/18 11/10/19 metFORMIN HCL [Glucophage] 1,000 mg PO DAILY 03/21/18 11/10/19 Previous Rx's Medication Instructions Recorded Furosemide [Lasix] 40 mg PO BID@0900,1600 #60 tab 10/28/19 Spironolactone [Aldactone] 25 mg PO BID #60 tab 10/28/19 Allergies Allergy/AdvReac Type Severity Reaction Status Date / Time No Known Allergies Allergy Verified 11/10/19 16:31 Review of Systems ROS Other: All systems not noted in ROS Statement are negative. <Ronny Rwals - Last Filed: 11/10/19 18:13> ROS Other: All systems not noted in ROS Statement are negative. <Joann Hines - Last Filed: 11/10/19 18:37> ROS Statement: Those systems with pertinent positive or pertinent negative responses have been documented in the HPI. Past Medical History Past Medical History: Cancer, Diabetes Mellitus, Hypertension, Sleep Apnea/CPAP/ BIPAP Additional Past Medical History / Comment(s): skin cancer History of Any Multi-Drug Resistant Organisms: None Reported Past Surgical History: Hernia Repair Additional Past Surgical History / Comment(s): COLONOSCOY, HYDROCELE REPAIR, heart catheterization Past Anesthesia/Blood Transfusion Reactions: No Reported Reaction Past Psychological History: No Psychological Hx Reported Smoking Status: Former smoker Past Alcohol Use History: Daily Past Drug Use History: None Reported - Past Family History Mother Family Medical History: No Reported History <Joann Hines - Last Filed: 11/10/19 18:37> General Exam Limitations: no limitations General appearance: alert, in no apparent distress Head exam: Present: atraumatic, normocephalic, normal inspection Eye exam: Present: normal appearance, PERRL, EOMI. Absent: scleral icterus, conjunctival injection, periorbital swelling ENT exam: Present: normal exam, mucous membranes moist Neck exam: Present: normal inspection. Absent: tenderness, meningismus, lymphadenopathy Respiratory exam: Present: normal lung sounds bilaterally. Absent: respiratory distress, wheezes, rales, rhonchi, stridor Cardiovascular Exam: Present: regular rate, normal rhythm, normal heart sounds. Absent: systolic murmur, diastolic murmur, rubs, gallop, clicks GI/Abdominal exam: Present: soft, normal bowel sounds, other (distention, ascites). Absent: distended, tenderness, guarding, rebound, rigid Extremities exam: Present: normal inspection, full ROM, normal capillary refill. Absent: tenderness, pedal edema, joint swelling, calf tenderness Back exam: Present: normal inspection <Joann Hines - Last Filed: 11/10/19 18:37> - General Exam Comments Initial Comments: This is a pleasant 69-year-old male. Alert and oriented 3. (Joann Hines) Course <Ronny Rawls - Last Filed: 01/13/20 18:13> Vital Signs 11/10/19 11/10/19 11/10/19 15:33 16:35 16:56 Temperature 97.3 F L Pulse Rate 65 Respiratory 18 20 Rate Blood Pressure 107/71 110/74 O2 Sat by Pulse 99 99 Oximetry 11/10/19 11/10/19 11/10/19 17:00 17:30 18:00 Temperature Pulse Rate 62 62 62 Respiratory 18 16 17 Rate Blood Pressure 110/74 106/60 106/70 O2 Sat by Pulse 98 98 98 Oximetry - Reevaluation(s) Reevaluation #1: 11/10/19 18:13 Patient physician: I did personally evaluate this patient he did present with with complaints of increased abdominal girth he did have a paracentesis done about 2 weeks ago he denies any nausea vomiting fevers chills sweats any type of abdominal or back pain. He states his last alcohol intake was on the first of this month. He does present with evidence after evaluation of acute pancreatitis as well as acute kidney injury. He will be admitted for inpatient evaluation and treatment. He will be given IV fluids. He will be seen by GI. The case is discussed with Dr. Schroeder's group. (Ronny Rawls) Medical Decision Making - Lab Data Result diagrams: 11/10/19 16:42 11/10/19 16:42 <Ronny Rawls - Last Filed: 11/10/19 18:13> - Lab Data Result diagrams: 11/10/19 16:42 11/10/19 16:42 - Radiology Data Radiology results: report reviewed <Joann Hines - Last Filed: 11/10/19 18:37> - Medical Decision Making Patient 69-year-old male history of cirrhosis and alcohol of disorder. He presents today for needing paracentesis. Patient at this time has lab work o btained. Some shortness of breath. EKG was unremarkable. Patient's shortness of breath is related to the ascites abdominal distention. Patient's lab work does show acute kidney injury. Worsening creatinine of 2.9 which was significant change from 0.9 on his last ER visit. Patient also has evidence of pancreatitis with a lipase of 5000. This is an elevation from previous. He denies drinking since October 29. I did review tree patient's MRI from [facility]. MRI impression shows suboptimal study there cirrhosis with evidence of underlying portal hypertension and splenomegaly and ascites was seen. Cannot exclude any solid liver masses. Contrast enhanced liver protocol CT especially Patient has an elevated AFP. I discussed the case at this time with Dr. Rawls. Patient was given a liter bolus and maintained on maintenance fluids. He denies any pain at this time. Patient will be admitted after discussing with EDER Rangel. Consult to GI. (Joann Hines) - Lab Data Lab Results 11/10/19 11/10/19 11/10/19 Range/Units 16:42 16:42 16:42 WBC 6.8 (3.8-10.6) k/uL RBC 4.08 L (4.30-5.90) m/uL Hgb 14.9 (13.0-17.5) gm/dL Hct 45.2 (39.0-53.0) % MCV 110.8 H (80.0-100.0) fL MCH 36.5 H (25.0-35.0) pg MCHC 33.0 (31.0-37.0) g/dL RDW 13.3 (11.5-15.5) % Plt Count 95 L (150-450) k/uL Neutrophils % 68 % Lymphocytes % 9 % Monocytes % 15 % Eosinophils % 3 % Basophils % 1 % Neutrophils # 4.6 (1.3-7.7) k/uL Lymphocytes # 0.6 L (1.0-4.8) k/uL Monocytes # 1.0 (0-1.0) k/uL Eosinophils # 0.2 (0-0.7) k/uL Basophils # 0.1 (0-0.2) k/uL Macrocytosis Marked A PT 12.6 H (9.0-12.0) sec INR 1.2 H (<1.2) APTT 26.6 (22.0-30.0) sec Sodium 134 L (137-145) mmol/L Potassium 5.5 H (3.5-5.1) mmol/L Chloride 104 (98-107) mmol/L Carbon Dioxide 18 L (22-30) mmol/L Anion Gap 12 mmol/L BUN 80 H (9-20) mg/dL Creatinine 2.65 H (0.66-1.25) mg/dL Est GFR (CKD-EPI)AfAm 27 (>60 ml/min/1.73 sqM) Est GFR (CKD-EPI)NonAf 24 (>60 ml/min/1.73 sqM) Glucose 115 H (74-99) mg/dL Calcium 9.1 (8.4-10.2) mg/dL Magnesium 2.3 (1.6-2.3) mg/dL Total Bilirubin 2.3 H (0.2-1.3) mg/dL AST 134 H (17-59) U/L ALT 43 (4-49) U/L Alkaline Phosphatase 137 H (38-126) U/L Troponin I (0.000-0.034) ng/mL Total Protein 7.4 (6.3-8.2) g/dL Albumin 3.5 (3.5-5.0) g/dL Lipase 5465 H (23-300) U/L Serum Alcohol <10 mg/dL 11/10/19 Range/Units 16:42 WBC (3.8-10.6) k/uL RBC (4.30-5.90) m/uL Hgb (13.0-17.5) gm/dL Hct (39.0-53.0) % MCV (80.0-100.0) fL MCH (25.0-35.0) pg MCHC (31.0-37.0) g/dL RDW (11.5-15.5) % Plt Count (150-450) k/uL Neutrophils % % Lymphocytes % % Monocytes % % Eosinophils % % Basophils % % Neutrophils # (1.3-7.7) k/uL Lymphocytes # (1.0-4.8) k/uL Monocytes # (0-1.0) k/uL Eosinophils # (0-0.7) k/uL Basophils # (0-0.2) k/uL Macrocytosis PT (9.0-12.0) sec INR (<1.2) APTT (22.0-30.0) sec Sodium (137-145) mmol/L Potassium (3.5-5.1) mmol/L Chloride (98-107) mmol/L Carbon Dioxide (22-30) mmol/L Anion Gap mmol/L BUN (9-20) mg/dL Creatinine (0.66-1.25) mg/dL Est GFR (CKD-EPI)AfAm (>60 ml/min/1.73 sqM) Est GFR (CKD-EPI)NonAf (>60 ml/min/1.73 sqM) Glucose (74-99) mg/dL Calcium (8.4-10.2) mg/dL Magnesium (1.6-2.3) mg/dL Total Bilirubin (0.2-1.3) mg/dL AST (17-59) U/L ALT (4-49) U/L Alkaline Phosphatase (38-126) U/L Troponin I <0.012 (0.000-0.034) ng/mL Total Protein (6.3-8.2) g/dL Albumin (3.5-5.0) g/dL Lipase (23-300) U/L Serum Alcohol mg/dL 11/10/19 17:02 EKG shows normal sinus rhythm nonspecific T-wave abnormality. Prolonged QT. Abnormal EKG. Ventricular rate of 67 beats were minute period. Was monitored for most seconds. She episc[employer]alian is 108 ms. QT QTc is 400/41 ms. (Kanwal Hines) - Radiology Data Normal chest x-ray. No changes. (Joann Hines) Disposition <Ronny Rawls - Last Filed: 11/10/19 18:13> Is patient prescribed a controlled substance at d/c from ED?: No Time of Disposition: 18:37 <Joann Hines - Last Filed: 11/10/19 18:37> Clinical Impression: Pancreatitis, Ascites, Acute kidney injury Disposition: ADMITTED IP TO THIS HOSP Condition: Stable Referrals: Monie Tapia MD [Primary Care Provider] - 1-2 days
--- NOTE | 2019-11-10 17:10 | XR ---
EXAMINATION TYPE: XR chest 2V DATE OF EXAM: 11/10/2019 COMPARISON: 10/26/2019 HISTORY: Short of breath TECHNIQUE: FINDINGS: Heart and mediastinum are normal. Lungs are clear of infiltrate. There is no pleural effusi on. Bony thorax is intact. IMPRESSION: Normal chest. No change.
[2019-11-10 17:17] LABS: Basophils # (A) 0.1 k/uL (0-0.2); Basophils % (A) 1 %; Eosinophils # (A) 0.2 k/uL (0-0.7); Eosinophils % (A) 3 %; HCT 45.2 % (39.0-53.0); HGB 14.9 gm/dL (13.0-17.5); Lymphocytes # (A) 0.6 k/uL (1.0-4.8); Lymphocytes % (A) 9 %; MCH 36.5 pg (25.0-35.0); MCV 110.8 fL (80.0-100.0); Macrocytosis Marked; Mean Platelet Volume 8.5; Monocytes % (A) 15 %; Neutrophils # (A) 4.6 k/uL (1.3-7.7); Neutrophils % (A) 68 %; RBC 4.08 m/uL (4.30-5.90); RDW 13.3 % (11.5-15.5); WBC 6.8 k/uL (3.8-10.6)
[2019-11-10 17:19] LABS: Platelet Count 95 k/uL (150-450)
[2019-11-10 17:29] LABS: ALT 43 U/L (4-49); AST 134 U/L (17-59); African American GFR (CKD) 27 (>60 ml/min/1.73 sqM); Albumin 3.5 g/dL (3.5-5.0); Alcohol <10 mg/dL; Alkaline Phosphatase 137 U/L (38-126); Anion Gap 12 mmol/L; Blood Urea Nitrogen 80 mg/dL (9-20); Calcium 9.1 mg/dL (8.4-10.2); Carbon Dioxide 18 mmol/L (22-30); Chloride 104 mmol/L (98-107); Glucose 115 mg/dL (74-99); Magnesium 2.3 mg/dL (1.6-2.3); Non-African American GFR(CKD) 24 (>60 ml/min/1.73 sqM); Potassium 5.5 mmol/L (3.5-5.1); Sodium 134 mmol/L (137-145); Total Bilirubin 2.3 mg/dL (0.2-1.3); Total Protein 7.4 g/dL (6.3-8.2)
[2019-11-10 17:32] LABS: INR 1.2 (<1.2); Partial Thromboplastin Time 26.6 sec (22.0-30.0); Prothrombin Time 12.6 sec (9.0-12.0)
[2019-11-10] MEDS ORDERED: SODIUM CHLORIDE 0.9% 1,000 ML IV ONE (18:12)
[2019-11-10] MEDS ORDERED: ACETAMINOPHEN TAB 325 MG TAB PO PRN (18:37)
[2019-11-10] MEDS ORDERED: IBUPROFEN 400 MG TAB PO PRN (18:37)
[2019-11-10] MEDS ORDERED: NALOXONE 0.4 MG/ML 1 ML VIAL IV PRN (18:37)
[2019-11-10] MEDS ORDERED: MORPHINE SULFATE 4 MG/ML SYRINGE IV PRN (18:37)
[2019-11-10] MEDS ORDERED: HYDROmorphone 0.5 MG/0.5 ML SYRINGE IVP PRN (18:37)
[2019-11-10 18:39] LABS: Appearance,Urine Clear (Clear); Bacteria,Urine Rare /hpf; Bilirubin,Urine Negative (Negative); Blood,Urine Negative (Negative); Color,Urine Yellow; Glucose,Urine (UA) Negative (Negative); Hyaline Casts,Urine 129 /lpf (0-2); Ketones,Urine Negative (Negative); Leukocyte Esterase,Urine Small (Negative); Mucus,Urine Rare /hpf; Nitrite,Urine Negative (Negative); PH, Urine 5.5 (5.0-8.0); Protein,Urine Trace (Negative); RBC,Urine 1 /hpf (0-5); Specific Gravity,Urine 1.019 (1.001-1.035); Squamous Epithelial Cell,Urine <1 /hpf (0-4); WBC,Urine 9 /hpf (0-5)
--- NOTE | 2019-11-10 19:22 | US ---
EXAMINATION TYPE: US gallbladder DATE OF EXAM: 11/10/2019 COMPARISON: US, CT CLINICAL HISTORY: lipase. Lipase per order. Hx paracentesis. EXAM MEASUREMENTS: Liver Length: 15.3 cm Gallbladder Wall: 0.46 cm CBD: 0.83 cm Right Kidney: 11.7 x 6.2 x 5.9 cm Limited due to ascites, gas, and body habitus. Pancreas: Limited visibility. Appears heterogeneous. Liver: Anechoic area seen measurin.4 x 1.0 x 1.4 cm. Heterogeneous solid area seen measurin. 8 x 4.2 x 3.8 cm. Indistinct hyperechoic area seen measuring approximately: 5.5 x 2.0 x 2.4 cm. Gallbladder: Limited. Hyperechoic area seen within gallbladder in LLD measurin.6 x 0.9 x 0.8 cm. Wall appears thickened. Evidence for sonographic Arias's sign: No CBD: Appears to be dilated. Right Kidney: No hydronephrosis or masses seen Ascites present. IMPRESSION: Possible 3.8 cm rounded solid liver mass. Large amount of ascites fluid. Single gallstone. No signifi cant dilation of the intrahepatic bile ducts.
[2019-11-11] MEDS: PANTOPRAZOLE 40 MG/10 ML VIAL IV SCH (09:54)
[2019-11-11 10:48] LABS: Albumin 2.9 g/dL (3.5-5.0); Calcium 8.5 mg/dL (8.4-10.2); Potassium 5.4 mmol/L (3.5-5.1); Total Bilirubin 2.2 mg/dL (0.2-1.3); Total Protein 6.4 g/dL (6.3-8.2)
[2019-11-11 11:10] LABS: INR 1.3 (<1.2); Prothrombin Time 12.9 sec (9.0-12.0)
[2019-11-11 11:19] LABS: Basophils % (A) 0 %; Eosinophils # (A) 0.2 k/uL (0-0.7); Eosinophils % (A) 3 %; HCT 41.3 % (39.0-53.0); HGB 13.9 gm/dL (13.0-17.5); Lymphocytes # (A) 0.6 k/uL (1.0-4.8); Lymphocytes % (A) 9 %; MCH 37.7 pg (25.0-35.0); MCHC 33.6 g/dL (31.0-37.0); MCV 112.2 fL (80.0-100.0); Macrocytosis Marked; Monocytes # (A) 0.9 k/uL (0-1.0); Monocytes % (A) 13 %; Neutrophils # (A) 4.7 k/uL (1.3-7.7); Neutrophils % (A) 72 %; RBC 3.68 m/uL (4.30-5.90); RDW 13.4 % (11.5-15.5); WBC 6.5 k/uL (3.8-10.6)
[2019-11-11 11:27] LABS: Platelet Count 88 k/uL (150-450)
[2019-11-11] MEDS ORDERED: ATORVASTATIN 20 MG TAB PO SCH (11:45)
--- NOTE | 2019-11-11 12:39 | P.HPIM ---
History of Present Illness this is a pleasant 69 yo M with past medical history of hypertension, Diabetes mellitus, sleep apnea on cpap , who presents with abd distension for about one week duration , with some difficulty of breathing , pt denies abd pain or nausea or vomiting , or change in bowel habit. pt has not been using NSAIDs lately, he used to drink one bottle of wine each day and he quit on 09/2019, no smoking or illicit drugs. pt has first time paracentasis about one week ago for the first time vital are stable. labs unremarkable cbc, however creatinine is elevated at 2.6 coming down to 2.3, Na 136, K 5.4, bilirubin 2.2, ast elevated at 139 , ast is wnl at 37. lipase elevated at 5465, Ua is not suspicious for infection , liver US: possible liver mass about 3.8 cm, and large ascitis ,cxr: no acute process, EKG: NSR at [address]-T changes Review of Systems CONSTITUTIONAL: No fever, no malaise, no fatigue. HEENT: No recent visual problems or hearing problems. Denied any sore throat. CARDIOVASCULAR: No orthopnea, PND, no palpitations, no syncope. PULMONARY: No shortness of breath, no cough, no hemoptysis. GASTROINTESTINAL: No diarrhea, no nausea, no vomiting, no abdominal pain. Normoactive bowel sounds. NEUROLOGICAL: No headaches, no weakness, no numbness. HEMATOLOGICAL: Denies any bleeding or petechiae. GENITOURINARY: Denies any burning micturition, frequency, or urgency. MUSCULOSKELETAL/RHEUMATOLOGICAL: Denies any joint pain, swelling, or any muscle pain. ENDOCRINE: Denies any polyuria or polydipsia. Past Medical History Past Medical History: Cancer, Diabetes Mellitus, Hypertension, Sleep Apnea/CPAP/BIPAP Additional Past Medical History / Comment(s): skin cancer History of Any Multi-Drug Resistant Organisms: None Reported Past Surgical History: Hernia Repair Additional Past Surgical History / Comment(s): COLONOSCOY, HYDROCELE REPAIR, heart catheterization Past Anesthesia/Blood Transfusion Reactions: No Reported Reaction Past Psychological History: No Psychological Hx Reported Smoking Status: Former smoker Past Alcohol Use History: Daily Additional Past Alcohol Use History / Comment(s): 1990 QUIT SMOKING STARTED AT AGE 18/ 1/2PPD DRINKS A BOTTLE OF WINE A DAY Past Drug Use History: None Reported - Past Family History Mother Family Medical History: No Reported History Medications and Allergies Home Medications Medication Instructions Recorded Confirmed Type metFORMIN HCL [Glucophage] 500 mg PO PC-SUPPER 12/22/15 11/10/19 History Aspirin [Adult Low Dose Aspirin EC] 81 mg PO DAILY 03/21/18 11/10/19 History Atorvastatin [Lipitor] 20 mg PO DAILY 03/21/18 11/10/19 History Bisoprolol-Hctz 5-6.25 mg [Ziac 1 tab PO DAILY 03/21/18 11/10/19 History 5-6.25 MG] Moexipril HCl [Univasc] 15 mg PO BID 03/21/18 11/10/19 History metFORMIN HCL [Glucophage] 1,000 mg PO DAILY 03/21/18 11/10/19 History Furosemide [Lasix] 40 mg PO BID@0900,1600 #60 tab 10/28/19 11/10/19 Rx Spironolactone [Aldactone] 25 mg PO BID #60 tab 10/28/19 11/10/19 Rx Allergies Allergy/AdvReac Type Severity Reaction Status Date / Time No Known Allergies Allergy Verified 11/10/19 16:31 Physical Exam Vitals: Vital Signs Temp Pulse Pulse Resp BP BP Pulse Ox 11/11/19 04:54 97.7 F 64 20 94/56 97 11/10/19 20:40 63 20 11/10/19 20:30 96.5 F L 63 20 117/63 98 11/10/19 19:38 97.4 F L 63 18 114/94 97 11/10/19 19:00 61 18 111/66 97 11/10/19 18:30 63 18 110/74 97 11/10/19 18:00 62 17 106/70 98 11/10/19 17:30 62 16 106/60 98 11/10/19 17:00 62 18 110/74 98 11/10/19 16:56 110/74 99 11/10/19 16:35 20 11/10/19 15:33 97.3 F L 65 18 107/71 99 Intake and Output 11/10/19 11/11/19 11/11/19 22:59 06:59 14:59 Intake Total 1399 Balance 1399 Intake: Intake, IV Titration 1399 Amount Sodium Chloride 0.9% 1, 400 000 ml @ 100 mls/hr IV . Q10H STA Rx#:[id number] Sodium Chloride 0.9% 1, 999 000 ml @ 999 mls/hr IV . Q1H1M ONE Rx#:[id number] Other: Voiding Method Toilet # Voids 0 Weight 106.594 kg GENERAL: The patient is alert and oriented x3, not in any acute distress. Well developed, well nourished. HEENT: Pupils are round and equally reacting to light. EOMI. No scleral icterus. No conjunctival pallor. Normocephalic, atraumatic. No pharyngeal erythema. No thyromegaly. CARDIOVASCULAR: S1 and S2 present. No murmurs, rubs, or gallops. PULMONARY: Chest is clear to auscultation, no wheezing or crackles. -ABDOMEN: Soft, nontender, significantly distended, normoactive bowel sounds. No palpable organomegaly. MUSCULOSKELETAL: No joint swelling or deformity. EXTREMITIES: No cyanosis, clubbing, or pedal edema. NEUROLOGICAL: Gross neurological examination did not reveal any focal deficits. SKIN: No rashes. No petechiae Results CBC & Chem 7: 11/11/19 10:10 11/11/19 10:10 Labs: Abnormal Lab Results - Last 24 Hours (Table) 11/10/19 11/10/19 11/10/19 Range/Units 16:42 16:42 16:42 RBC 4.08 L (4.30-5.90) m/uL MCV 110.8 H (80.0-100.0) fL MCH 36.5 H (25.0-35.0) pg Plt Count 95 L (150-450) k/uL Lymphocytes # 0.6 L (1.0-4.8) k/uL Macrocytosis Marked A PT 12.6 H (9.0-12.0) sec INR 1.2 H (<1.2) Sodium 134 L (137-145) mmol/L Potassium 5.5 H (3.5-5.1) mmol/L Carbon Dioxide 18 L (22-30) mmol/L BUN 80 H (9-20) mg/dL Creatinine 2.65 H (0.66-1.25) mg/dL Glucose 115 H (74-99) mg/dL Total Bilirubin 2.3 H (0.2-1.3) mg/dL AST 134 H (17-59) U/L Alkaline Phosphatase 137 H (38-126) U/L Albumin (3.5-5.0) g/dL Lipase 5465 H (23-300) U/L Urine Protein (Negative) Ur Leukocyte Esterase (Negative) Urine WBC (0-5) /hpf Urine Bacteria (None) /hpf Hyaline Casts (0-2) /lpf Urine Mucus (None) /hpf 11/10/19 11/11/19 11/11/19 Range/Units 17:16 10:10 10:10 RBC 3.68 L (4.30-5.90) m/uL MCV 112.2 H (80.0-100.0) fL MCH 37.7 H (25.0-35.0) pg Plt Count (150-450) k/uL Lymphocytes # (1.0-4.8) k/uL Macrocytosis Marked A PT (9.0-12.0) sec INR (<1.2) Sodium 136 L (137-145) mmol/L Potassium 5.4 H (3.5-5.1) mmol/L Carbon Dioxide 19 L (22-30) mmol/L BUN 82 H (9-20) mg/dL Creatinine 2.30 H (0.66-1.25) mg/dL Glucose (74-99) mg/dL Total Bilirubin 2.2 H (0.2-1.3) mg/dL AST 139 H (17-59) U/L Alkaline Phosphatase (38-126) U/L Albumin 2.9 L (3.5-5.0) g/dL Lipase (23-300) U/L Urine Protein Trace H (Negative) Ur Leukocyte Esterase Small H (Negative) Urine WBC 9 H (0-5) /hpf Urine Bacteria Rare H (None) /hpf Hyaline Casts 129 H (0-2) /lpf Urine Mucus Rare H (None) /hpf Thrombosis Risk Factor Assmnt - Choose All That Apply Any of the Below Risk Factors Present?: Yes Each Factor Represents 1 point: Minor surgery planned, Obesity (BMI >25), Swollen legs (current) Other Risk Factors: Yes Each Risk Factor Represents 2 Points: Age 61-74 years Other congenital or acquired thrombophilia - If yes, enter type in comment: No Thrombosis Risk Factor Assessment Total Risk Factor Score: 5 Thrombosis Risk Factor Assessment Level: High Risk Assessment and Plan Assessment: abd distension secondary to ascitis acute pancreatitis liver mass acute kidney injury diabetes mellitus hypertension sleep apnea on cpap Plan: this is a pleasant 69 yo M who presents with marisol and pancreatitis , stop iv fluid and c/w lasix , we will do renal us, hold metformin and put pt on ISS, hold clint inh (Moexipril) and spironolactone. call cylinder tester and GI consult Labs and medication were reviewed.. Continue same treatment. Continue with symptomatic treatment. Resume home medication. Monitor lytes and vitals. DVT and GI prophylaxis. Further recommendations of the clinical course of the patient DVT prophylaxis: Subcutaneous heparin GI Prophylaxis: Pepcid PT/OT: Pending Prognosis is guarded
[2019-11-11] MEDS: ASPIRIN 81 MG PO SCH (14:09)
--- NOTE | 2019-11-11 14:50 | US ---
EXAMINATION TYPE: US kidneys/renal and bladder DATE OF EXAM: 11/11/2019 COMPARISON: CT 10/27/2019 CLINICAL HISTORY: r/o injury. EXAM MEASUREMENTS: Right Kidney: 11.4 x 6.0 x 5.2 cm Left Kidney: 11.5 x 5.5 x 4.5 cm Right Kidney: No hydronephrosis or masses seen Left Kidney: No hydronephrosis or masses seen Bladder: wnl as visualized, not fully distended Bilateral Jets seen: No Moderate amount of ascites visualized There is no evidence for hydronephrosis at this point in time. No nephrolithiasis is seen. No paco s are identified. The urinary bladder is anechoic. IMPRESSION: No hydronephrosis or nephrolithiasis of either kidney. Partially visualized abdominal ascites from th e patient's known cirrhosis.
[2019-11-11] MEDS ORDERED: FUROSEMIDE 40 MG TAB PO SCH (16:00)
--- NOTE | 2019-11-11 16:32 | US ---
EXAMINATION TYPE: US paracentesis abd w/image DATE OF EXAM: 11/11/2019 COMPARISON: NONE HISTORY: Ascites. PROCEDURE: Maximal barrier technique was utilized. The skin overlying a suitable pocket of fluid was localized with ultrasound and the overlying skin was prepped and draped. Ultrasound was utilized with sterile technique. Lidocaine was used for local anesthesia and a skin kaci made with a scalpel. Catheter was advanced under direct ultrasound guidance into a suitable pocket of fluid and approximately 7.6 liter s of serous fluid were removed. Catheter was withdrawn and hemostasis achieved. There is no immedia te complication; the patient is discharged in stable condition. IMPRESSION: STATUS POST ULTRASOUND GUIDED PARACENTESIS FOR PALLIATION OF ASCITES. THIS PROCEDURE WA S PERFORMED BY THE UNDERSIGNED.
[2019-11-11] MEDS: ALBUMIN HUMAN 25% 50 ML in EMPTY BAG 1 BAG IVPB SCH ×4 (17:12→21:54)
[2019-11-11] MEDS ORDERED: FAMOTIDINE 20 MG/2 ML VIAL IV SCH (21:00)
[2019-11-11] MEDS: HEPARIN SODIUM,PORCINE 5,000 UNIT/ML 1 ML VIAL SQ SCH ×2 (21:58→21:59)
[2019-11-11] MEDS: ATORVASTATIN 20 MG TAB PO SCH (21:58)
--- NOTE | 2019-11-11 23:29 | P.PN ---
Subjective Progress Note Date: 11/11/19 Attempted to see the patient, however he was undergoing paracentesis in on room, will follow up tomorrow. Full consult to follow. Objective - Vital Signs Vital signs: Vital Signs Temp 97.4 F L 11/11/19 20:10 Pulse 72 11/11/19 20:10 Resp 18 11/11/19 20:10 BP 105/70 11/11/19 20:10 Pulse Ox 96 11/11/19 20:10 Intake & Output 11/11/19 11/11/19 11/12/19 06:59 18:59 06:59 Intake Total 1399 400 Balance 1399 400 Weight 106.594 kg Intake: Intake, IV Titration 1399 400 Amount Sodium Chloride 0.9% 1, 400 400 000 ml @ 100 mls/hr IV . Q10H STA Rx#:[id number] Sodium Chloride 0.9% 1, 999 000 ml @ 999 mls/hr IV . Q1H1M ONE Rx#:[id number] Other: Voiding Method Toilet # Voids 0 1 - Labs CBC & Chem 7: 11/11/19 10:10 11/11/19 10:10 Labs: Abnormal Lab Results - Last 24 Hours (Table) 11/11/19 11/11/19 11/11/19 Range/Units 10:10 10:10 10:10 RBC 3.68 L (4.30-5.90) m/uL MCV 112.2 H (80.0-100.0) fL MCH 37.7 H (25.0-35.0) pg Plt Count 88 L (150-450) k/uL Lymphocytes # 0.6 L (1.0-4.8) k/uL Macrocytosis Marked A PT 12.9 H (9.0-12.0) sec INR 1.3 H (<1.2) Sodium 136 L (137-145) mmol/L Potassium 5.4 H (3.5-5.1) mmol/L Carbon Dioxide 19 L (22-30) mmol/L BUN 82 H (9-20) mg/dL Creatinine 2.30 H (0.66-1.25) mg/dL Total Bilirubin 2.2 H (0.2-1.3) mg/dL AST 139 H (17-59) U/L Albumin 2.9 L (3.5-5.0) g/dL
--- NOTE | 2019-11-12 06:57 | P.PN ---
Subjective this is a pleasant 69 yo M with past medical history of hypertension, Diabetes mellitus, sleep apnea on cpap , who presents with abd distension for about one week duration , with some difficulty of breathing , pt denies abd pain or nausea or vomiting , or change in bowel habit. pt has not been using NSAIDs lately, he used to drink one bottle of wine each day and he quit on 09/2019, no smoking or illicit drugs. pt has first time paracentasis about one week ago for the first time vital are stable. labs unremarkable cbc, however creatinine is elevated at 2.6 coming down to 2.3, Na 136, K 5.4, bilirubin 2.2, ast elevated at 139 , ast is wnl at 37. lipase elevated at 5465, Ua is not suspicious for infection , liver US: possible liver mass about 3.8 cm, and large ascitis ,cxr: no acute process, EKG: NSR at [address]-T changes 11/12/2019 Patient underwent paracentesis yesterday was 7.6 L of fluid has been taken out. Patient feels better. He denies abdominal pain. No change in bowel habits. No urine symptoms. No nausea vomiting and hysterectomy and diet. No chest pain or dyspnea. He is able to move freely and he thinks he is at baseline. Patient is aware about his current to many problems with possible liver mass and high creatinine. Patient has been followed and consulted by GI and nephrology service. Patient was recently in the hospital and discharged on about 2 weeks ago, he underwent a MRI as an outpatient from 11/03 showing cirrhosis with possible portal hypertension, cannot exclude liver mass and the recommended CAT scan with contrast, liver protocol especially if increased alph a-fetoprotein. Patient vitals stable. Labs from today are pending. Objective - Vital Signs Vital signs: Vital Signs Temp 98.1 F 11/12/19 05:25 Pulse 61 11/12/19 05:25 Resp 18 11/12/19 05:25 BP 119/77 11/12/19 05:25 Pulse Ox 96 11/12/19 05:25 Intake & Output 11/11/19 11/11/19 11/12/19 06:59 18:59 06:59 Intake Total 1399 400 Balance 1399 400 Weight 106.594 kg Intake: Intake, IV Titration 1399 400 Amount Sodium Chloride 0.9% 1, 400 400 000 ml @ 100 mls/hr IV . Q10H STA Rx#:[id number] Sodium Chloride 0.9% 1, 999 000 ml @ 999 mls/hr IV . Q1H1M ONE Rx#:[id number] Other: Voiding Method Toilet # Voids 0 1 - Exam GENERAL: The patient is alert and oriented x3, not in any acute distress. Well developed, well nourished. HEENT: Pupils are round and equally reacting to light. EOMI. No scleral icterus. No conjunctival pallor. Normocephalic, atraumatic. No pharyngeal erythema. No thyromegaly. CARDIOVASCULAR: S1 and S2 present. No murmurs, rubs, or gallops. PULMONARY: Chest is clear to auscultation, no wheezing or crackles. -ABDOMEN: Soft, nontender, abdominal distention resolved, normoactive bowel sounds. No palpable organomegaly. MUSCULOSKELETAL: No joint swelling or deformity. EXTREMITIES: No cyanosis, clubbing, or pedal edema. NEUROLOGICAL: Gross neurological examination did not reveal any focal deficits. SKIN: No rashes. no petechiae. - Labs CBC & Chem 7: 11/11/19 10:10 11/11/19 10:10 Labs: Abnormal Lab Results - Last 24 Hours (Table) 11/11/19 11/11/19 11/11/19 Range/Units 10:10 10:10 10:10 RBC 3.68 L (4.30-5.90) m/uL MCV 112.2 H (80.0-100.0) fL MCH 37.7 H (25.0-35.0) pg Plt Count 88 L (150-450) k/uL Lymphocytes # 0.6 L (1.0-4.8) k/uL Macrocytosis Marked A PT 12.9 H (9.0-12.0) sec INR 1.3 H (<1.2) Sodium 136 L (137-145) mmol/L Potassium 5.4 H (3.5-5.1) mmol/L Carbon Dioxide 19 L (22-30) mmol/L BUN 82 H (9-20) mg/dL Creatinine 2.30 H (0.66-1.25) mg/dL Total Bilirubin 2.2 H (0.2-1.3) mg/dL AST 139 H (17-59) U/L Albumin 2.9 L (3.5-5.0) g/dL Assessment and Plan Assessment: abd distension secondary to ascitis , status post paracentesis at 7.6 L removed acute pancreatitis, symptomatic liver mass, possible. Patient is recommended to have CAT scan with contrast, the protocol Liver cirrhosis with possible portal hypertension acute kidney injury Recent history of alcohol abuse, most likely his liver disease is related to his alcohol and complication diabetes mellitus hypertension sleep apnea on cpap Plan: this is a pleasant 69 yo M who presents with marisol and pancreatitis , patient recommended to have CAT scan with liver protocol for possible liver metastases. stop iv fluid and lasix , we will do renal us, hold metformin and put pt on ISS, hold clint inh (Moexipril) and spironolactone. Following recommendation by design assembler and GI consult Labs and medication were reviewed.. Continue same treatment. Continue with symptomatic treatment. Resume home medication. Monitor lytes and vitals. DVT and GI prophylaxis. Further recommendations of the clinical course of the patient DVT prophylaxis: Subcutaneous heparin GI Prophylaxis: Pepcid PT/OT: No need, gait is at baseline Prognosis is guarded
[2019-11-12 07:22] LABS: Glucose,Whole Blood 115 mg/dL (75-99)
[2019-11-12] MEDS: INSULIN ASPART (NovoLOG) 100 UNIT/ML VIAL SQ SCH ×4 (07:28→21:17)
[2019-11-12 07:46] LABS: Basophils % (A) 1 %; Eosinophils # (A) 0.2 k/uL (0-0.7); Eosinophils % (A) 3 %; HCT 39.8 % (39.0-53.0); HGB 13.2 gm/dL (13.0-17.5); Lymphocytes # (A) 0.4 k/uL (1.0-4.8); Lymphocytes % (A) 8 %; MCH 37.3 pg (25.0-35.0); MCHC 33.2 g/dL (31.0-37.0); MCV 112.2 fL (80.0-100.0); Macrocytosis Marked; Mean Platelet Volume 8.2; Monocytes # (A) 0.6 k/uL (0-1.0); Monocytes % (A) 12 %; Neutrophils # (A) 3.7 k/uL (1.3-7.7); Neutrophils % (A) 72 %; RBC 3.55 m/uL (4.30-5.90); RDW 13.2 % (11.5-15.5); WBC 5.1 k/uL (3.8-10.6)
[2019-11-12 07:47] LABS: Platelet Count 69 k/uL (150-450)
[2019-11-12 07:58] LABS: Calcium 8.7 mg/dL (8.4-10.2); Potassium 4.9 mmol/L (3.5-5.1); Total Protein 6.1 g/dL (6.3-8.2)
[2019-11-12] MEDS: HEPARIN SODIUM,PORCINE 5,000 UNIT/ML 1 ML VIAL SQ SCH ×2 (08:40→21:16)
[2019-11-12] MEDS: PANTOPRAZOLE 40 MG/10 ML VIAL IV SCH (08:40)
[2019-11-12] MEDS: ASPIRIN 81 MG PO SCH (08:40)
[2019-11-12] MEDS ORDERED: IOPAMIDOL CONTRAST (ORAL USE) VIAL PO PRN (09:14)
[2019-11-12 11:16] LABS: Glucose,Whole Blood 201 mg/dL (75-99)
--- NOTE | 2019-11-12 13:13 | CT ---
EXAMINATION TYPE: CT abdomen w con DATE OF EXAM: 11/12/2019 COMPARISON: CT abdomen October 27, [address] 2015[address] Gallbladder ultrasound November 10, 2019 a nd older studies. HISTORY: Liver Mass CT DLP: 2324.7 mGycm, Automated Exposure Control for Dose Reduction was Utilized. CONTRAST: CT scan of the abdomen is performed with oral and with IV Contrast, patient injected with 100 mL of I sovue 300. FINDINGS: LUNG BASES: No significant abnormality is appreciated. LIVER/GB: Liver overall remains somewhat small in size especially right hepatic lobe with lobulated p eripheral margin consistent with underlying cirrhosis persistent roughly 1 cm hypoechoic round lesion right hepatic lobe without enhancement likely reflects simple thin-walled cyst axial image 39 series 4. Surrounding ascites redemonstrated despite paracentesis one day earlier. The slightly larger vagu e heterogeneous hypoechoic lesion inferior to this on prior CT is less well seen on current study whe re it appears isointense. This would favor possible FNH or hepatic adenoma. Similar to prior CT there is a vague area of diminished enhancement in a geographic distribution throughout the left hepatic l obe that shows some increased enhancement on delayed phase images. I was scanned feel this reflects f atty infiltration given the geographic distribution versus mass lesion. There are some vague areas of enhancement for reference posterior right hepatic lobe image 34 series 4 measuring 2.6 cm long axis which are isointense on delayed phased images. This could correspond to the hyperechoic lesion measur ed on recent ultrasound as it is near the periphery. PANCREAS: No significant abnormality is seen. SPLEEN: Splenomegaly redemonstrated with surrounding ascites. ADRENALS: No significant abnormality is seen. KIDNEYS: No significant abnormality is seen. BOWEL: No suspicious small large bowel dilatation. LYMPH NODES: No greater than 1cm abdominal lymph nodes are appreciated. OSSEOUS STRUCTURES: No significant abnormality is seen. OTHER: Small to moderate amount of abdominal ascites improved from prior CT after recent paracentesis . IMPRESSION: Cirrhosis with evidence of underlying portal hypertension redemonstrated. Lesion measurin g up to 5 to 6 cm in size long axis not clearly identified on multiphase CT. Marked underlying hetero geneity is present. There are likely a few heterogeneous enhancing lesions greater than background li darin which become isodense but not measuring near 5 cm. Differential would include or favor FNH or hep atic adenoma. I identified to such lesions or areas of concern. Atypical hepatocellular carcinoma not entirely excluded. Correlation with alpha-fetoprotein levels advised. If they remain elevated patien t may benefit with nonemergent liver protocol MRI which is more sensitive to evaluate if patient can hold breath.
[2019-11-12 16:59] LABS: Glucose,Whole Blood 121 mg/dL (75-99)
[2019-11-12 20:38] LABS: Glucose,Whole Blood 185 mg/dL (75-99)
[2019-11-12] MEDS ORDERED: FUROSEMIDE 10 MG/ML 4 ML VIAL IV SCH (21:00)
[2019-11-12] MEDS: ATORVASTATIN 20 MG TAB PO SCH (21:17)
--- NOTE | 2019-11-12 22:05 | CONS ---
CONSULTATION REASON FOR CONSULT: Renal failure. HISTORY OF PRESENT ILLNESS: Patient is a 69-year-old male who was admitted to the hospital with complaints of shortness of breath, abdominal distention. Patient has underlying chronic liver disease and he had paracentesis about 2 weeks prior to his admission for the first time at [facility]. He does have a history of alcohol abuse previously. Patient denies any history of kidney diseases. He was started on Lasix and Aldactone on his last visit. Serum creatinine on admission was 2.65. It is down to 1.23 today. Patient did have paracentesis yesterday with fluid removal of about 7 L. He did get albumin yesterday. Blood pressure has been on the lower side with systolic around 104 to 101 mmHg. Overall patient states he is feeling better. He has been voiding well. PAST MEDICAL HISTORY: Past medical history is significant for: 1. Type 2 diabetes. 2. Hypertension. 3. Obstructive sleep apnea. 4. Skin cancer. PAST SURGICAL HISTORY: 1. Hernia repair. 2. Colonoscopy. 3. Cardiac catheterization. SOCIAL HISTORY: Negative for smoking. Patient does consume alcohol. He drinks a whole bottle of wine every day. MEDICATIONS: Medications prior to admission included: 1. Glucophage. 2. Lipitor. 3. Aspirin. 4. Univasc. 5. Ziac. 6. Lasix. 7. Aldactone. ALLERGIES: NONE. PHYSICAL EXAMINATION: On examination, patient is comfortable, awake, alert, oriented x3. He is not in any acute distress. Blood pressure is 119/77, heart rate 61 per minute. He is afebrile. EXAMINATION OF THE HEART: S1 and S2. EXAMINATION OF LUNGS: Bilateral breath sounds are heard. Decreased breath sounds at bases. ABDOMEN: Soft, distended with ascites. An umbilical hernia is noted. Examination of lower extremities shows trace edema bilaterally. ENERGY OPERATIONS VICE PRESIDENT exam is grossly intact. LABS: Hemoglobin 13.2 from yesterday, sodium 138, potassium 4.9, chloride 108, BUN 70, creatinine 1.23. ASSESSMENT: 1. Acute kidney injury, prerenal, currently improved. The diuretics are on hold. Patient is not on any IV fluids, which is appropriate. Patient is going down for a CT of the abdomen with IV contrast. Therefore I will hold the IV Lasix for now. We need to avoid significant hypotension as well. The UA is unremarkable. He did have a lot of hyaline casts. 2. Hyperkalemia associated with acute kidney injury, currently improved with improving renal function. 3. Chronic liver disease and portal hypertension with recurrent ascites. PLAN: Hold IV Lasix for now. Continue off of IV fluids. Hold Aldactone as well, given the hyperkalemia. Repeat labs in a.m. MMODL / IJN: [id number] /
[2019-11-12 23:54] LABS: Hemoglobin A1C 5.7 % (4.0-6.0)
--- NOTE | 2019-11-13 00:05 | P.CONS ---
History of Present Illness - Reason for Consult Consult date: 11/12/19 Abdominal ascites, cirrhosis Requesting physician: Ramiro E Sheet - Chief Complaint Abdominal distension - History of Present Illness 69-year-old male with medical history significant for hypertension, diabetes mellitus, MICHELL and recent diagnosis of alcoholic cirrhosis with ascites who presented to the hospital with complaints of abdominal distention and shortness of breath. Patient had been drinking alcohol daily until recent admission at which time he was diagnosed with decompensated alcoholic cirrhosis. At that time patient was also found to have a questionable liver lesion suspicious for possible malignancy and elevated AFP. He was also treated for acute alcoholic pancreatitis at that time. The patient did follow up with MRI in the outpatient setting, however MRCP was performed instead of MRI of the abdomen with contrast. He presented to the hospital on current admission due to increasing abdominal distention and shortness of breath. Patient found to have acute elevation in his creatinine on presentation which has improved significantly with fluid hydration. He underwent paracentesis yesterday with 7.6 L of ascitic fluid removed. Computed tomography scan with liver protocol performed with findings of 5-6 cm liver lesion with differential including adenoma, focal nodular hyperplasia, however malignancy not excluded. Patient otherwise reporting that he is feeling well with abdominal distention and shortness of breath improved after paracentesis. No signs or symptoms of GI bleeding. He has remained abstinent from alcohol since his last admission. Review of Systems REVIEW OF SYSTEMS: CONSTITUTIONAL: Denies any fevers, chills, weight change or fatigue. CARDIOVASCULAR: Denies any chest pain, palpitations high or low blood pressures RESPIRATORY: Denies any shortness of breath currently after paracentesis however did report shortness of breath on presentation, hemoptysis or cough. GENITOURINARY: No dysuria or hematuria. MUSCULOSKELETAL: No weakness reported. SKIN: Denies any new rashes or lesions, jaundice or pallor. PSYCHIATRIC: Denies any depression or anxiety. NEUROLOGY: Denies headache, denies any new focal deficits. EARS/NOSE/THROAT: No recent hearing change, congestion, nasal discharge or sore throat. EYES: No pain in eyes, discharge or change in vision. GASTROINTESTINAL: As per HPI. Past Medical History Past Medical History: Cancer, Diabetes Mellitus, Hypertension, Sleep Apnea/CPAP/BIPAP Additional Past Medical History / Comment(s): skin cancer History of Any Multi-Drug Resistant Organisms: None Reported Past Surgical History: Hernia Repair Additional Past Surgical History / Comment(s): COLONOSCOY, HYDROCELE REPAIR, heart catheterization Past Anesthesia/Blood Transfusion Reactions: No Reported Reaction Past Psychological History: No Psychological Hx Reported Smoking Status: Former smoker Past Alcohol Use History: Daily Additional Past Alcohol Use History / Comment(s): 1989 QUIT SMOKING STARTED AT AGE 18/ 1/2PPD DRINKS A BOTTLE OF WINE A DAY Past Drug Use History: None Reported - Past Family History Mother Family Medical History: No Reported History Medications and Allergies Home Medications Medication Instructions Recorded Confirmed Type metFORMIN HCL [Glucophage] 500 mg PO PC-SUPPER 12/22/15 11/10/19 History Aspirin [Adult Low Dose Aspirin EC] 81 mg PO DAILY 03/21/18 11/10/19 History Atorvastatin [Lipitor] 20 mg PO DAILY 03/21/18 11/10/19 History Bisoprolol-Hctz 5-6.25 mg [Ziac 1 tab PO DAILY 03/21/18 11/10/19 History 5-6.25 MG] Moexipril HCl [Univasc] 15 mg PO BID 03/21/18 11/10/19 History metFORMIN HCL [Glucophage] 1,000 mg PO DAILY 03/21/18 11/10/19 History Furosemide [Lasix] 40 mg PO BID@0900,1600 #60 tab 10/28/19 11/10/19 Rx Spironolactone [Aldactone] 25 mg PO BID #60 tab 10/28/19 11/10/19 Rx Allergies Allergy/AdvReac Type Severity Reaction Status Date / Time No Known Allergies Allergy Verified 11/10/19 16:31 Physical Exam Vitals: Vital Signs Temp Pulse Resp BP Pulse Ox 11/12/19 15:42 97.6 F 70 14 107/68 98 11/12/19 05:25 98.1 F 61 18 119/77 96 Intake and Output 11/12/19 11/12/19 11/13/19 14:59 22:59 06:59 Intake Total 0 Balance 0 Intake: Intake, IV Titration 0 Amount Albumin Human 25% 50 ml 0 In Empty Bag 1 bag @ 50 mls/hr IVPB Q1H [place] Rx#: [id number] On physical examination, patient appears comfortable in no apparent distress. HEAD: Normocephalic, atraumatic. EYES: No scleral icterus. No conjunctival injection. MOUTH: No lesions, tongue midline. NECK: Trachea midline, no gross abnormalities. CHEST: Clear to auscultation with no wheezing or rhonchi appreciated. HEART: Regular rate and rhythm. ABDOMEN: Soft, obese and mildly distended. Bowel sounds are positive. No organomegaly. No guarding or rigidity. EXTREMITIES: No pedal edema. SKIN: No rashes, no jaundice. NEUROLOGIC: Alert and oriented x3. No focal deficits. Results CBC & Chem 7: 11/12/19 07:16 11/12/19 07:16 Labs: Abnormal Lab Results - Last 24 Hours (Table) 11/12/19 11/12/19 11/12/19 Range/Units 07:16 07:16 07:20 RBC 3.55 L (4.30-5.90) m/uL MCV 112.2 H (80.0-100.0) fL MCH 37.3 H (25.0-35.0) pg Plt Count 69 L (150-450) k/uL Lymphocytes # 0.4 L (1.0-4.8) k/uL Macrocytosis Marked A Chloride 108 H (98-107) mmol/L Carbon Dioxide 20 L (22-30) mmol/L BUN 70 H (9-20) mg/dL Glucose 113 H (74-99) mg/dL POC Glucose (mg/dL) 115 H (75-99) mg/dL Total Bilirubin 2.0 H (0.2-1.3) mg/dL AST 125 H (17-59) U/L Total Protein 6.1 L (6.3-8.2) g/dL Albumin 3.0 L (3.5-5.0) g/dL Lipase 1161 H (23-300) U/L 11/12/19 11/12/19 11/12/19 Range/Units 11:15 16:57 20:13 RBC (4.30-5.90) m/uL MCV (80.0-100.0) fL MCH (25.0-35.0) pg Plt Count (150-450) k/uL Lymphocytes # (1.0-4.8) k/uL Macrocytosis Chloride (98-107) mmol/L Carbon Dioxide (22-30) mmol/L BUN (9-20) mg/dL Glucose (74-99) mg/dL POC Glucose (mg/dL) 201 H 121 H 185 H (75-99) mg/dL Total Bilirubin (0.2-1.3) mg/dL AST (17-59) U/L Total Protein (6.3-8.2) g/dL Albumin (3.5-5.0) g/dL Lipase (23-300) U/L CT scan - abdomen: report reviewed (Computed tomography scan abdomen with a cirrhotic-appearing liver and a 5-6 cm liver lesion with differential including adenoma, focal nodular hyperplasia with malignancy not excluded) Assessment and Plan (1) Alcoholic cirrhosis of liver with ascites Narrative/Plan: 69-year-old male with recent diagnosis of decompensated alcoholic cirrhosis with ascites who presented with shortness of breath and abdominal distention. Status post patient reports increased comfort and shortness of breath. Patient also found to have liver lesion of unknown etiology with differential including adenoma, FNH or possible malignancy seen on ultrasound and CT with liver protocol in the setting of cirrhotic liver and elevated AFP. Patient no longer drinking alcohol. Current Visit: Yes Status: Acute Code(s): K70.31 - ALCOHOLIC CIRRHOSIS OF LIVER WITH ASCITES SNOMED Code(s): 215573259 (2) Elevated liver enzymes Current Visit: Yes Status: Acute Code(s): R74.8 - ABNORMAL LEVELS OF OTHER SERUM ENZYMES SNOMED Code(s): 071600516 (3) Liver lesion Current Visit: Yes Status: Acute Code(s): K76.9 - LIVER DISEASE, UNSPECIFIED SNOMED Code(s): 348089862 Plan: Supportive care Sodium restricted diet Dietitian consult placed Continue to monitor CBC, CMP AFP reordered Computed tomography scan of the abdomen with liver protocol ordered and reviewed, case discussed with interventional radiology and plan is for biopsy to be performed after discharge or as the patient was on aspirin therapy which needs to be held prior to procedure Lasix 40 mg IV twice daily reinitiated If creatinine continues to trend towards patient's baseline we'll reinitiate Aldactone therapy tomorrow Continue alcohol abstinence Thank you for allowing us to participate in the care of the patient we will continue to follow
[2019-11-13 00:24] VITALS: RESP 20
[2019-11-13 05:29] VITALS: BP 104/68; PULSE 71; TEMP 97.9
[2019-11-13 07:00] LABS: Glucose,Whole Blood 117 mg/dL (75-99)
[2019-11-13] MEDS: INSULIN ASPART (NovoLOG) 100 UNIT/ML VIAL SQ SCH (07:27)
[2019-11-13 08:33] LABS: ALT 40 U/L (4-49); AST 128 U/L (17-59); African American GFR (CKD) >90 (>60 ml/min/1.73 sqM); Albumin 3.3 g/dL (3.5-5.0); Alkaline Phosphatase 119 U/L (38-126); Anion Gap 9 mmol/L; Blood Urea Nitrogen 49 mg/dL (9-20); Calcium 8.8 mg/dL (8.4-10.2); Carbon Dioxide 24 mmol/L (22-30); Chloride 106 mmol/L (98-107); Glucose 114 mg/dL (74-99); Non-African American GFR(CKD) 80 (>60 ml/min/1.73 sqM); Potassium 4.5 mmol/L (3.5-5.1); Sodium 139 mmol/L (137-145); Total Bilirubin 2.2 mg/dL (0.2-1.3); Total Protein 6.8 g/dL (6.3-8.2)
[2019-11-13] MEDS: PANTOPRAZOLE 40 MG/10 ML VIAL IV SCH (09:11)
[2019-11-13] MEDS: HEPARIN SODIUM,PORCINE 5,000 UNIT/ML 1 ML VIAL SQ SCH (09:11)
[2019-11-13] MEDS ORDERED: FUROSEMIDE 20 MG TAB PO SCH (09:45)
[2019-11-13 11:15] VITALS: BMI 31.8
--- NOTE | 2019-11-13 12:18 | P.DS ---
Providers Date of admission: 11/10/19 18:13 Attending physician: Betty Schroeder Consults: 11/10/19 18:37 Consult Physician Stat Consulting Provider: Gonzalez Lai Consult Reason/Comments: Ascites, pancreatitis Do you want consulting provider notified?: Yes, Notify in am 11/11/19 11:38 Consult Physician Urgent Consulting Provider: Ramila Dave Consult Reason/Comments: marisol Do you want consulting provider notified?: Yes [facility] Course: Diagnosis: abd distension secondary to ascitis , status post paracentesis with 7.6 L removed acute pancreatitis, asymptomatic. improving liver mass, patient will need liver biopsy and follow-up. As an outpatient. Also patient has elevated alpha-fetoprotein at 490 from 10/27/2019 Liver cirrhosis with possible portal hypertension acute kidney injury , improved Recent history of alcohol abuse, most likely his liver disease is related to his alcohol abuse and complication diabetes mellitus hypertension sleep apnea on cpap Hospital course: this is a pleasant 69 yo M with past medical history of hypertension, Diabetes mellitus, sleep apnea on cpap , who presents with abd distension for about one week duration , with some difficulty of breathing , pt denies abd pain or nausea or vomiting , or change in bowel habit. pt has not been using NSAIDs lately, he used to drink one bottle of wine each day and he quit on 09/2019, no smoking or illicit drugs. pt has first time paracentasis about one week earlier to admission for the first time . He underwent paracentesis and 7.6 L of fluid has been taken out. Patient abdominal distention improved. He still is symptomatic. His creatinine was elevated on admission at 2.6 came back to normal at 1.2 he underwent a MRI as an outpatient from 11/03 showing cirrhosis with possible portal hypertension, cannot exclude liver mass and the recommended CAT scan with contrast. Computed tomography scan done showed lesions measuring up to 5-6 cm with possible hepatic adenoma, F and H for focal nodular hyperplasia, however malignancy cannot be excluded. GI team evaluated the patient and they recommended liver biopsy by interventional radiology and follow-up with GI as an outpatient, patient unaware of his liver mass, risk of being cancerous and the need for liver biopsy and he agrees with this plan and intense to follow up closely with GI as well. Patient was counseled to keep alcohol abstinence. His sugar was on and on the low side for example 114, 117 this morning, patient was instructed to keep diabetic diet, hold metformin and follow-up with his PCP in one week to reevaluate to restart metformin or no, the meantime patient was counseled about checking his sugar regularly and he agrees. Patient was instructed to hold aspirin 5 days prior to procedure and resume it after that as per his doctor and he agrees. On the day of discharge patient denies other symptoms. No chest pain or dyspnea, no abdominal pain or distention. No nausea vomiting. No change in urine or bowel habits. No fever. Patient agrees to be discharged and follow-up as an outpatient Patient was cleared for discharge by GI and nephrology team Problems and management plan were discussed with the patient and he verbalized understanding and acceptance Patient was found stable and can be discharged home however he needs follow-up as an outpatient. Patient was instructed to follow up with PCP within one week and patient agrees. Patient told me this morning that he made his on appointment with Dr. Lomax about his PCP on 11/19 at 12:30 in the morning. Patient also instructed to follow up with GI team in one week and for his liver biopsy with interventional radiologist and he agrees. Patient confirmed to me that he is aware about the timing and place of his liver biopsy and possible paracentesis and he agrees also with the appointments with the GI team on 11/28 and he intends to follow-up Gen: patient is a AAOx3, no distress CVS: S1-S2, RRR, no murmur Lungs: B/L CTA, no wheezing Abdomen: soft, no distention, no tenderness, positive bowel sounds Extremity: no leg edema or induration Time spent more than 35 minutes Patient Condition at Discharge: Stable Plan - Discharge Summary New Discharge Prescriptions: New Furosemide [Lasix] 20 mg PO DAILY #30 tab Acetaminophen Tab [Tylenol] 650 mg PO Q6HR PRN tab PRN Reason: Mild Pain Or Fever > 100.5 Continue Moexipril HCl [Univasc] 15 mg PO BID Atorvastatin [Lipitor] 20 mg PO DAILY Discontinued metFORMIN HCL [Glucophage] 500 mg PO PC-SUPPER Bisoprolol-Hctz 5-6.25 mg [Ziac 5-6.25 MG] 1 tab PO DAILY metFORMIN HCL [Glucophage] 1,000 mg PO DAILY Aspirin [Adult Low Dose Aspirin EC] 81 mg PO DAILY Spironolactone [Aldactone] 25 mg PO BID #60 tab Furosemide [Lasix] 40 mg PO BID@0900,1600 #60 tab Discharge Medication List Atorvastatin [Lipitor] 20 mg PO DAILY 03/21/18 [History] Moexipril HCl [Univasc] 15 mg PO BID 03/21/18 [History] Acetaminophen Tab [Tylenol] 650 mg PO Q6HR PRN tab 11/13/19 [Rx] Furosemide [Lasix] 20 mg PO DAILY #30 tab 11/13/19 [Rx] Follow up Appointment(s)/Referral(s): Monie Tapia MD [Primary Care Provider] - 1-2 days Galilea Granda PAC [REFERRING] - 11/28/19 1:45 pm Patient Instructions/Handouts: Laparoscopic Liver Biopsy (DC) Activity/Diet/Wound Care/Special Instructions: No aspirin hold it for 5 days prior to your procedure of liver biopsy and resume it as per your doctor thereafter liver biopsy 11-21-19 at [facility] activity as tolerated renal diet hold your metformin , keep checking your sugar 4 times per day before each meal and at bed side. if glucose <70 or > 400 call 911 and go to emergency room. keep a log book of your sugar reading and bring it to your doctor in one week. Discharge Disposition: HOME SELF-CARE
[2019-11-13 12:28] LABS: Glucose,Whole Blood 160 mg/dL (75-99)
--- NOTE | 2019-11-13 16:11 | PN ---
PROGRESS NOTE Patient is seen for followup for acute kidney injury which was prerenal. This has resolved. Creatinine is down to 0.9 today. Patient is doing very well. He is being considered for discharge. PHYSICAL EXAMINATION: On examination, patient is comfortable, awake, not in any acute distress. Blood pressure was 104/68, heart rate 71 per minute. He is afebrile. EXAMINATION OF THE HEART: S1 and S2. EXAMINATION OF LUNGS: Bilateral breath sounds are heard. ABDOMEN: Soft, non-tender. Examination of lower extremities shows no significant edema. LABS: Serum creatinine down to 0.97. ASSESSMENT: 1. Acute kidney injury, prerenal, now resolved. 2. Alcoholic liver disease with portal hypertension and recurrent ascites, being followed by GI, status post paracentesis this admission. 3. Lesion on the liver with concern for underlying malignancy. Patient will need biopsy as outpatient. PLAN: Okay to discharge patient. Will maintain on low-dose loop diuretics and monitor labs as outpatient. MMODL / IJN: [id number] /
--- NOTE | 2019-11-21 08:14 | CDI ---
Documentation Clarification Form Date: 11/21/19 From: Anika Mcguire Phone: If you have a question about this query, please contact Kelsie Hardin, Trim Machine Operator at [phone] between 8am and 5pm. Admit Date: 11/10/19 Discharge Date: 11/13/19 Patient Name: Avinash Obrien Visit Number: [id number] ATTENTION: The Clinical Documentation Specialists (CDI) and [facility] Coding Staff appreciate your assistance in clarifying documentation. Please respond to the clarification below the line at the bottom and electronically sign. The CDI & [facility] Coding staff will review the response and follow-up if needed. Please note: Queries are made part of the Legal Health Record. If you have any questions, please contact the author of this message via ITS. Dear Dr. Rubio Sheet, Acute pancreatitis is documented in the ED note, H&P, Dr Lai consult, your 11/12 PN & DS. Patient history/risk factors: hx of recent alcohol remission, MICHELL, HTN, DM Clinical Indicators: hx acute alcoholic pancreatitis, alcoholic cirrhosis w ascites, WHIT, Radiology: Possible 3.8 cm rounded solid liver mass. Large amount of ascites fluid. Lipase: 5465 Total Bilirubin: 2.3 Serum Alcohol: <10 Vital Signs: T-97.3, P-65, R-18,BP-107/71, O2 SAT-99 Treatment: NPO, IV fluids, IV MS, IVP Dilaudid, In your professional opinion, can the etiology of the acute pancreatitis be further specified as one of the following, if known? Etiology Alcohol induced Other, please specify Unable to determine Unable to determine MTDD
== END 2019-11-13 12:38 | disposition home or self-care (01) | DRG 432 ==
LOC: EC 15:07 → 6NMEDSUR 18:13
PROVIDERS: ADMIT Hospitalist; ATTEND Hospitalist
PROC: 0W9G3ZZ Drainage of Peritoneal Cavity, Percutaneous Approach (ICD-10-PCS; principal; 2019-11-11)
DX: K70.31 Alcoholic cirrhosis of liver with ascites (principal); K85.90 Acute pancreatitis without necrosis or infection, unspecified; N17.9 Acute kidney failure, unspecified; K76.6 Portal hypertension; R16.0 Hepatomegaly, not elsewhere classified; F10.21 Alcohol dependence, in remission; E87.5 Hyperkalemia; G47.33 Obstructive sleep apnea (adult) (pediatric); E11.9 Type 2 diabetes mellitus without complications; I10 Essential (primary) hypertension; R77.2 Abnormality of alphafetoprotein; Z79.82 Long term (current) use of aspirin; Z79.84 Long term (current) use of oral hypoglycemic drugs; Z79.899 Other long term (current) drug therapy; Z87.891 Personal history of nicotine dependence; Z99.89 Dependence on other enabling machines and devices; Z85.828 Personal history of other malignant neoplasm of skin; Z98.890 Other specified postprocedural states
CPT/HCPCS: 36415; 49083; 71046; 74160; 76705; 76770; 80053; 80320; 81001; 82105; 83036; 83690; 83735; 84484; 85025; 85610; 85730; 93005; 96361; 96374; 99285

== ENCOUNTER 2019-11-21 08:34 | Day surgery (SDC) | payer MEDICARE ==
[2019-11-21] MEDS ORDERED: ALPRAZolam 0.25 MG TAB PO STA (09:16)
[2019-11-21 09:26] VITALS: RESP 16; TEMP 97.5
[2019-11-21 09:52] LABS: Mean Platelet Volume 8.5
[2019-11-21 09:58] LABS: Platelet Count 90 k/uL (150-450)
[2019-11-21 10:04] LABS: INR 1.3 (<1.2); Prothrombin Time 12.7 sec (9.0-12.0)
[2019-11-21 11:16] VITALS: BP 105/67; PULSE 84
--- NOTE | 2019-11-21 12:46 | US ---
Therapeutic paracentesis. DATE OF EXAM: 11/21/2019 CLINICAL HISTORY: Ascites The procedure was discussed with the patient. The risks, complications, benefits, and alternatives we re discussed and any questions were answered. Informed consent was obtained. The patient was placed s upine on the ultrasound table and prepped and draped in the usual sterile fashion. All elements of maximal barrier technique were utilized. Under ultrasound guidance, access into the right lower quadrant was obtained, via the paracentesis catheter system and direct ultrasound guidanc e. Approximately 6.8 liters of straw-colored fluid was removed. The patient was stable throughout the pr ocedure and remained stable upon discharge from Department of Radiology. IMPRESSION: Successful therapeutic paracentesis under ultrasound guidance.
== END 2019-11-21 12:00 | disposition home or self-care (01) ==
LOC: RADPROMAIN 08:34
PROVIDERS: ATTEND Family Medicine
DX: R18.8 Other ascites (principal); R16.0 Hepatomegaly, not elsewhere classified
CPT/HCPCS: 36415; 49083; 82947; 85049; 85610

== ENCOUNTER → 2019-11-22 | Outpatient (CLI) | payer MEDICARE ==
--- NOTE | 2019-11-25 14:38 | PE ---
Nuclear medicine PET/CT HISTORY: Liver lesion, initial Patient received 11.6 mCi F-18 FDG intravenously in delayed scanning was performed from the skull bas e to the mid thighs. Localization and attenuation correction CT scan was performed. Correlation to prior CT dated 11/12/2019 Neck and chest: There is no evident cervical or supraclavicular adenopathy. Superior mediastinal janet opathy is present with associated hypermetabolic uptake SUV 2.7, retrocaval pretracheal node also jaja ws enlargement and associated hypermetabolic uptake SUV 4.6. Subcarinal adenopathy shows associated h ypermetabolic uptake 6.1. No evident lung mass. No pleural or pericardial effusion. ABDOMEN: The large area of abnormal attenuation involving essentially the entirety of the left lobe o f the liver shows associated hypermetabolic uptake SUV 8.8. There is a retroperitoneal node is enlarg ed and shows associated hypermetabolic uptake SUV 3.8. There is extensive abdominal ascites. Spleen i s enlarged. Osseous structures are within normal limits. No hypermetabolic uptake. IMPRESSION: IMPRESSION: Findings suggest metastatic disease to the mediastinum and retroperitoneum, primary liver tumor is suspected
== END | disposition home or self-care (01) ==
LOC: RADPETMAIN 13:43
PROVIDERS: ATTEND Internal Medicine
DX: K76.9 Liver disease, unspecified (principal)
CPT/HCPCS: 78815; A9552

== ENCOUNTER 2019-12-02 07:43 | Day surgery (SDC) | payer MEDICARE ==
[2019-12-02 08:31] LABS: Mean Platelet Volume 8.4; Platelet Count 105 k/uL (150-450)
[2019-12-02 08:41] LABS: INR 1.3 (<1.2); Prothrombin Time 12.8 sec (9.0-12.0)
[2019-12-02 08:55] VITALS: TEMP 97.4
[2019-12-02] MEDS: ALBUMIN HUMAN 25% 50 ML in EMPTY BAG 1 BAG IVPB SCH ×4 (10:10→11:13)
[2019-12-02 11:16] VITALS: BP 90/53; PULSE 83; RESP 16
--- NOTE | 2019-12-02 13:26 | US ---
EXAMINATION TYPE: US paracentesis abd w/image DATE OF EXAM: 12/02/2019 COMPARISON: NONE HISTORY: Ascites. PROCEDURE: Maximal barrier technique was utilized. The skin overlying a suitable pocket of fluid was localized with ultrasound and the overlying skin was prepped and draped. Ultrasound was utilized with sterile technique, hand hygiene obtained with soap and water. Lidocaine was used for local anesthesia and a s kin kaci made with a scalpel. Catheter was advanced under direct ultrasound guidance into a suitable pocket of fluid and approximately 7.3 liters of serous fluid were removed. Catheter was withdrawn an d hemostasis achieved. There is no immediate complication; the patient is discharged in stable condi tion. IMPRESSION: STATUS POST ULTRASOUND GUIDED PARACENTESIS FOR PALLIATION OF ASCITES. THIS PROCEDURE WA S PERFORMED BY THE UNDERSIGNED.
--- NOTE | 2019-12-02 13:29 | US ---
Discontinued liver biopsy HISTORY: Liver mass, abnormal PET/CT In preparation for patient's liver biopsy, patient is noted to be hypotensive. Systolic blood pressur es noted in the 80s. Discussion with the referring clinician ensued. Patient remained stable and aler t and oriented. IMPRESSION: Discontinued liver biopsy, reschedule following stabilization of patient's blood pressure .
== END 2019-12-02 11:25 | disposition other institution (70) ==
LOC: RADPROMAIN 07:43
PROVIDERS: ATTEND Internal Medicine
DX: R18.8 Other ascites (principal); R16.0 Hepatomegaly, not elsewhere classified; Z53.09 Procedure and treatment not carried out because of other contraindication; I95.9 Hypotension, unspecified
CPT/HCPCS: 82565; 82947; 85049; 85610; 36415; 76705; 49083; P9047

== ENCOUNTER 2019-12-02 11:23 | Inpatient (IN) | payer MEDICARE ==
[2019-12-02] MEDS ORDERED: SODIUM CHLORIDE 0.9% 1,000 ML IV STA (11:32)
--- NOTE | 2019-12-02 11:39 | ED ---
General Adult HPI - General Chief complaint: Recheck/Abnormal Lab/Rx Stated complaint: Hypotension Time Seen by Provider: 12/02/19 11:25 Source: patient, RN notes reviewed Mode of arrival: wheelchair Limitations: no limitations - History of Present Illness Initial comments: Patient is a pleasant 69-year-old male presenting to the emergency department wi concerns for low blood pressure. Patient was having paracentesis done. Starting blood pressure was 93. Patient had 7.3 L removed. Blood pressure did go into the 70s. Dr. june recommended patient be admitted. Patient was given albumin and blood pressure did raise again to the low 90s. Patient states if symptoms have been occurring since around [place] time. Patient has had abdominal distention and decreased appetite. This is the third time patient has had paracentesis. Patient at this time only complains of some mild fatigue and general weakness. No confusion or isolated area of weakness. No fevers. No pain or abdominal pain at this time. No dyspnea. Patient is a former drinker. Patient does have lesions visualized on imaging of the liver and is also planned to have a biopsy done. - Related Data Home Medications Medication Instructions Recorded Confirmed Zolpidem [Ambien] 5 mg PO HS PRN 11/21/19 12/02/19 Previous Rx's Medication Instructions Recorded Acetaminophen Tab [Tylenol] 650 mg PO Q6HR PRN tab 11/13/19 Furosemide [Lasix] 20 mg PO DAILY #30 tab 11/13/19 Allergies Allergy/AdvReac Type Severity Reaction Status Date / Time No Known Allergies Allergy Verified 12/02/19 12:02 Review of Systems ROS Statement: Those systems with pertinent positive or pertinent negative responses have been documented in the HPI. ROS Other: All systems not noted in ROS Statement are negative. Constitutional: Denies: fever Eyes: Denies: eye pain ENT: Denies: throat pain Respiratory: Denies: cough Cardiovascular: Denies: chest pain Endocrine: Reports: fatigue Gastrointestinal: Reports: as per HPI. Denies: abdominal pain, nausea, vomiting Genitourinary: Denies: dysuria Musculoskeletal: Denies: back pain Skin: Denies: rash Neurological: Denies: headache Past Medical History Past Medical History: Cancer, Diabetes Mellitus, Hypertension, Liver Disease, Sleep Apnea/CPAP/BIPAP Additional Past Medical History / Comment(s): skin cancer, liver mass, ascites History of Any Multi-Drug Resistant Organisms: None Reported Past Surgical History: Hernia Repair Additional Past Surgical History / Comment(s): COLONOSCOY, HYDROCELE REPAIR, heart catheterization, paracentesis Past Anesthesia/Blood Transfusion Reactions: No Reported Reaction Past Psychological History: No Psychological Hx Reported Smoking Status: Former smoker Past Alcohol Use History: Daily Past Drug Use History: None Reported - Past Family History Mother Family Medical History: No Reported History General Exam Limitations: no limitations General appearance: alert Head exam: Present: normocephalic Eye exam: Present: normal appearance, PERRL, EOMI ENT exam: Present: normal oropharynx Neck exam: Present: normal inspection Respiratory exam: Present: normal lung sounds bilaterally Cardiovascular Exam: Present: regular rate, normal rhythm GI/Abdominal exam: Present: soft. Absent: distended, tenderness Extremities exam: Present: normal inspection Neurological exam: Present: alert, oriented X3, CN II-XII intact. Absent: motor sensory deficit Psychiatric exam: Present: normal affect, normal mood Skin exam: Present: normal color Course Vital Signs 12/02/19 12/02/19 12/02/19 11:28 12:05 13:00 Temperature 97.6 F Pulse Rate 81 82 79 Respiratory 18 16 18 Rate Blood Pressure 88/32 91/43 97/51 O2 Sat by Pulse 99 99 96 Oximetry Medical Decision Making - Medical Decision Making Patient reevaluated and resting comfortably in bed, symptom-free at this time. Systolic blood pressure is 97. Patient updated on results and plan. Case was discussed in detail with Dr. Henao, who will admit covering for Dr. Monie Rodríguez. - Lab Data Result diagrams: 12/02/19 11:40 12/02/19 11:40 Lab Results 12/02/19 12/02/19 12/02/19 Range/Units 11:40 11:40 11:40 WBC 7.7 (3.8-10.6) k/uL RBC 3.51 L (4.30-5.90) m/uL Hgb 12.9 L (13.0-17.5) gm/dL Hct 37.7 L (39.0-53.0) % MCV 107.4 H (80.0-100.0) fL MCH 36.9 H (25.0-35.0) pg MCHC 34.4 (31.0-37.0) g/dL RDW 13.0 (11.5-15.5) % Plt Count 64 L (150-450) k/uL Neutrophils % 69 % Lymphocytes % 7 % Monocytes % 19 % Eosinophils % 2 % Basophils % 0 % Neutrophils # 5.3 (1.3-7.7) k/uL Lymphocytes # 0.6 L (1.0-4.8) k/uL Monocytes # 1.4 H (0-1.0) k/uL Eosinophils # 0.1 (0-0.7) k/uL Basophils # 0.0 (0-0.2) k/uL Manual Slide Review Performed Poikilocytosis (manual Present Macrocytosis Moderate PT (9.0-12.0) sec INR (<1.2) APTT (22.0-30.0) sec Sodium 126 L (137-145) mmol/L Potassium 5.5 H (3.5-5.1) mmol/L Chloride 99 (98-107) mmol/L Carbon Dioxide 17 L (22-30) mmol/L Anion Gap 10 mmol/L BUN 76 H (9-20) mg/dL Creatinine 2.09 H (0.66-1.25) mg/dL Est GFR (CKD-EPI)AfAm 36 (>60 ml/min/1.73 sqM) Est GFR (CKD-EPI)NonAf 31 (>60 ml/min/1.73 sqM) Glucose 100 H (74-99) mg/dL Plasma Lactic Acid Shane 1.3 (0.7-2.0) mmol/L Calcium 8.7 (8.4-10.2) mg/dL Phosphorus 5.0 H (2.5-4.5) mg/dL Magnesium 2.6 H (1.6-2.3) mg/dL Total Bilirubin 2.4 H (0.2-1.3) mg/dL AST 124 H (17-59) U/L ALT 42 (4-49) U/L Alkaline Phosphatase 142 H (38-126) U/L Troponin I (0.000-0.034) ng/mL Total Protein 6.3 (6.3-8.2) g/dL Albumin 3.2 L (3.5-5.0) g/dL Amylase 65 (30-110) U/L Lipase 1127 H (23-300) U/L Urine Color Urine Appearance (Clear) Urine pH (5.0-8.0) Ur Specific Florence (1.001-1.035) Urine Protein (Negative) Urine Glucose (UA) (Negative) Urine Ketones (Negative) Urine Blood (Negative) Urine Nitrite (Negative) Urine Bilirubin (Negative) Urine Urobilinogen (<2.0) mg/dL Ur Leukocyte Esterase (Negative) Urine RBC (0-5) /hpf Urine WBC (0-5) /hpf Urine Bacteria (None) /hpf Hyaline Casts (0-2) /lpf Urine Mucus (None) /hpf 12/02/19 12/02/19 12/02/19 Range/Units 11:40 11:40 12:01 WBC (3.8-10.6) k/uL RBC (4.30-5.90) m/uL Hgb (13.0-17.5) gm/dL Hct (39.0-53.0) % MCV (80.0-100.0) fL MCH (25.0-35.0) pg MCHC (31.0-37.0) g/dL RDW (11.5-15.5) % Plt Count (150-450) k/uL Neutrophils % % Lymphocytes % % Monocytes % % Eosinophils % % Basophils % % Neutrophils # (1.3-7.7) k/uL Lymphocytes # (1.0-4.8) k/uL Monocytes # (0-1.0) k/uL Eosinophils # (0-0.7) k/uL Basophils # (0-0.2) k/uL Manual Slide Review Poikilocytosis (manual Macrocytosis PT 13.1 H (9.0-12.0) sec INR 1.3 H (<1.2) APTT 22.2 (22.0-30.0) sec Sodium (137-145) mmol/L Potassium (3.5-5.1) mmol/L Chloride (98-107) mmol/L Carbon Dioxide (22-30) mmol/L Anion Gap mmol/L BUN (9-20) mg/dL Creatinine (0.66-1.25) mg/dL Est GFR (CKD-EPI)AfAm (>60 ml/min/1.73 sqM) Est GFR (CKD-EPI)NonAf (>60 ml/min/1.73 sqM) Glucose (74-99) mg/dL Plasma Lactic Acid Shane (0.7-2.0) mmol/L Calcium (8.4-10.2) mg/dL Phosphorus (2.5-4.5) mg/dL Magnesium (1.6-2.3) mg/dL Total Bilirubin (0.2-1.3) mg/dL AST (17-59) U/L ALT (4-49) U/L Alkaline Phosphatase (38-126) U/L Troponin I <0.012 (0.000-0.034) ng/mL Total Protein (6.3-8.2) g/dL Albumin (3.5-5.0) g/dL Amylase (30-110) U/L Lipase (23-300) U/L Urine Color Yellow Urine Appearance Clear (Clear) Urine pH 5.0 (5.0-8.0) Ur Specific [place] 1.009 (1.001-1.035) Urine Protein Negative (Negative) Urine Glucose (UA) Negative (Negative) Urine Ketones Negative (Negative) Urine Blood Trace H (Negative) Urine Nitrite Negative (Negative) Urine Bilirubin Negative (Negative) Urine Urobilinogen <2.0 (<2.0) mg/dL Ur Leukocyte Esterase Negative (Negative) Urine RBC 1 (0-5) /hpf Urine WBC 1 (0-5) /hpf Urine Bacteria Rare H (None) /hpf Hyaline Casts 12 H (0-2) /lpf Urine Mucus Rare H (None) /hpf - Radiology Data Radiology results: image reviewed (Chest x-ray shows chronic changes. Possible lung nodule.) Disposition Clinical Impression: Dehydration, Pancreatitis, Hyponatremia Disposition: ADMITTED IP TO THIS HOSP Is patient prescribed a controlled substance at d/c from ED?: No Referrals: Monie Tapia MD [Primary Care Provider] - 1-2 days Decision Time: 13:15
[2019-12-02 12:08] LABS: Albumin 3.2 g/dL (3.5-5.0); Calcium 8.7 mg/dL (8.4-10.2); Magnesium 2.6 mg/dL (1.6-2.3); Total Bilirubin 2.4 mg/dL (0.2-1.3); Total Protein 6.3 g/dL (6.3-8.2)
--- NOTE | 2019-12-02 12:08 | XR ---
EXAMINATION TYPE: XR chest 2V DATE OF EXAM: 12/02/2019 COMPARISON: 11/10/2019 HISTORY: 69-year-old male with weakness TECHNIQUE: PA and lateral views FINDINGS: Heart normal size. Aorta and pulmonary vasculature within normal limits. Mild interstitial prominence . High-density nodule left upper lobe, compatible with a calcified granuloma. Subtle nodularity left lower lung suspect nipple shadow. No consolidation or pleural effusion. IMPRESSION: Chronic changes, possible chronic bronchitis/asthma. Benign calcified granuloma left upper lobe. Subtle nodule left lower lung, suspected nipple shadow. Follow-up in 4-6 weeks utilizing samirple marke rs. Otherwise, no cardiopulmonary process.
[2019-12-02 12:16] LABS: INR 1.3 (<1.2); Partial Thromboplastin Time 22.2 sec (22.0-30.0); Prothrombin Time 13.1 sec (9.0-12.0)
[2019-12-02 12:23] LABS: Potassium 5.5 mmol/L (3.5-5.1)
[2019-12-02 12:25] LABS: Basophils % (A) 0 %; Eosinophils # (A) 0.1 k/uL (0-0.7); Eosinophils % (A) 2 %; HCT 37.7 % (39.0-53.0); HGB 12.9 gm/dL (13.0-17.5); Lymphocytes # (A) 0.6 k/uL (1.0-4.8); Lymphocytes % (A) 7 %; MCH 36.9 pg (25.0-35.0); MCHC 34.4 g/dL (31.0-37.0); MCV 107.4 fL (80.0-100.0); Macrocytosis Moderate; Mean Platelet Volume 8.7; Monocytes # (A) 1.4 k/uL (0-1.0); Monocytes % (A) 19 %; Neutrophils # (A) 5.3 k/uL (1.3-7.7); Neutrophils % (A) 69 %; RBC 3.51 m/uL (4.30-5.90); WBC 7.7 k/uL (3.8-10.6)
[2019-12-02 12:33] LABS: Appearance,Urine Clear (Clear); Bacteria,Urine Rare /hpf; Bilirubin,Urine Negative (Negative); Blood,Urine Trace (Negative); Color,Urine Yellow; Glucose,Urine (UA) Negative (Negative); Hyaline Casts,Urine 12 /lpf (0-2); Ketones,Urine Negative (Negative); Leukocyte Esterase,Urine Negative (Negative); Mucus,Urine Rare /hpf; Nitrite,Urine Negative (Negative); Protein,Urine Negative (Negative); RBC,Urine 1 /hpf (0-5); Specific Gravity,Urine 1.009 (1.001-1.035); Urobilinogen,Urine <2.0 mg/dL (<2.0); WBC,Urine 1 /hpf (0-5)
[2019-12-02 13:00] LABS: Platelet Count 64 k/uL (150-450)
[2019-12-02 13:01] LABS: Poikilocytosis (M) Present
[2019-12-02 13:07] VITALS: RESP 18
[2019-12-02] MEDS ORDERED: NALOXONE 0.4 MG/ML 1 ML VIAL IV PRN (13:15)
--- NOTE | 2019-12-02 13:23 | P.HPIM ---
History of Present Illness this is a pleasant 69 yo M with past medical history of hypertension, Diabetes mellitus, sleep apnea on cpap , ascites, elevated lipase, liver mass with elevated alpha-fetoprotein at 490 from 10/27/2019, Liver cirrhosis with possible portal hypertension, Recent history of alcohol abuse, most likely his liver disease is related to his alcohol abuse and complication, thrombocytopenia and history of acute kidney injury. Patient was transferred to the emergency room because of drop in his blood pressure while having paracentesis done today, as per documents his systolic blood pressure dropped from 93 down to 70s, with 7.3 L removed, he received of vomiting in the emergency room and his blood pressure went into the low 90s again. Patient has some tachypnea however he denies chest pain or abdominal pain or nausea vomiting or change in urine or bowel habits Patient also telling me he is supposed to get liver biopsy after the paracentesis however his blood pressure dropped so they postponed the procedure His labs showing stable WBC, hemoglobin 12.9 and chronic thrombocytopenia at 64 currently. INR is 1.3, sodium 126, potassium 5.5, creatinine was elevated at 2.0 last admission was elevated to 0.6, 2.3, came back to normal to 0.9-1.2 upon discharge. Troponin is negative. Chest x-ray showing chronic changes with a b ronchitis, benign granuloma in the left upper lobe, nipple shadow Review of Systems CONSTITUTIONAL: No fever, no malaise, no fatigue. HEENT: No recent visual problems or hearing problems. Denied any sore throat. CARDIOVASCULAR: No orthopnea, PND, no palpitations, no syncope. PULMONARY: No shortness of breath, no cough, no hemoptysis. GASTROINTESTINAL: No diarrhea, no nausea, no vomiting, no abdominal pain. Normoactive bowel sounds. NEUROLOGICAL: No headaches, no weakness, no numbness. HEMATOLOGICAL: Denies any bleeding or petechiae. GENITOURINARY: Denies any burning micturition, frequency, or urgency. MUSCULOSKELETAL/RHEUMATOLOGICAL: Denies any joint pain, swelling, or any muscle pain. ENDOCRINE: Denies any polyuria or polydipsia. Past Medical History Past Medical History: Cancer, Diabetes Mellitus, Hypertension, Liver Disease, Sleep Apnea/CPAP/BIPAP Additional Past Medical History / Comment(s): skin cancer, liver mass, ascites History of Any Multi-Drug Resistant Organisms: None Reported Past Surgical History: Hernia Repair Additional Past Surgical History / Comment(s): COLONOSCOY, HYDROCELE REPAIR, heart catheterization, paracentesis Past Anesthesia/Blood Transfusion Reactions: No Reported Reaction Past Psychological History: No Psychological Hx Reported Smoking Status: Former smoker Past Alcohol Use History: Daily Past Drug Use History: None Reported - Past Family History Mother Family Medical History: No Reported History Medications and Allergies Home Medications Medication Instructions Recorded Confirmed Type Acetaminophen Tab [Tylenol] 650 mg PO Q6HR PRN tab 11/13/19 12/02/19 Rx Furosemide [Lasix] 20 mg PO DAILY #30 tab 11/13/19 12/02/19 Rx Zolpidem [Ambien] 5 mg PO HS PRN 11/21/19 12/02/19 History Allergies Allergy/AdvReac Type Severity Reaction Status Date / Time No Known Allergies Allergy Verified 12/02/19 12:02 Physical Exam Vitals: Vital Signs Temp Pulse Resp BP Pulse Ox 12/02/19 13:00 79 18 97/51 96 12/02/19 12:05 82 16 91/43 99 12/02/19 11:28 97.6 F 81 18 88/32 99 Intake and Output 12/01/19 12/02/19 12/02/19 22:59 06:59 14:59 Other: Weight 90.718 kg GENERAL: The patient is alert and oriented x3, not in any acute distress. Well developed, well nourished. HEENT: Pupils are round and equally reacting to light. EOMI. No scleral icterus. No conjunctival pallor. Normocephalic, atraumatic. No pharyngeal erythema. No thyromegaly. CARDIOVASCULAR: S1 and S2 present. No murmurs, rubs, or gallops. PULMONARY: Chest is clear to auscultation, no wheezing or crackles. ABDOMEN: Soft, nontender, nondistended, normoactive bowel sounds. No palpable organomegaly. MUSCULOSKELETAL: No joint swelling or deformity. EXTREMITIES: No cyanosis, clubbing, or pedal edema. NEUROLOGICAL: Gross neurological examination did not reveal any focal deficits. SKIN: No rashes. No petechiae Results CBC & Chem 7: 12/02/19 11:40 12/02/19 11:40 Labs: Abnormal Lab Results - Last 24 Hours (Table) 12/02/19 12/02/1920 Range/Units 11:40 11:40 11:40 RBC 3.51 L (4.30-5.90) m/uL Hgb 12.9 L (13.0-17.5) gm/dL Hct 37.7 L (39.0-53.0) % MCV 107.4 H (80.0-100.0) fL MCH 36.9 H (25.0-35.0) pg Plt Count 64 L (150-450) k/uL Lymphocytes # 0.6 L (1.0-4.8) k/uL Monocytes # 1.4 H (0-1.0) k/uL PT 13.1 H (9.0-12.0) sec INR 1.3 H (<1.2) Sodium 126 L (137-145) mmol/L Potassium 5.5 H (3.5-5.1) mmol/L Carbon Dioxide 17 L (22-30) mmol/L BUN 76 H (9-20) mg/dL Creatinine 2.09 H (0.66-1.25) mg/dL Glucose 100 H (74-99) mg/dL Phosphorus 5.0 H (2.5-4.5) mg/dL Magnesium 2.6 H (1.6-2.3) mg/dL Total Bilirubin 2.4 H (0.2-1.3) mg/dL AST 124 H (17-59) U/L Alkaline Phosphatase 142 H (38-126) U/L Albumin 3.2 L (3.5-5.0) g/dL Lipase 1127 H (23-300) U/L Urine Blood (Negative) Urine Bacteria (None) /hpf Hyaline Casts (0-2) /lpf Urine Mucus (None) /hpf 12/02/19 Range/Units 12:01 RBC (4.30-5.90) m/uL Hgb (13.0-17.5) gm/dL Hct (39.0-53.0) % MCV (80.0-100.0) fL MCH (25.0-35.0) pg Plt Count (150-450) k/uL Lymphocytes # (1.0-4.8) k/uL Monocytes # (0-1.0) k/uL PT (9.0-12.0) sec INR (<1.2) Sodium (137-145) mmol/L Potassium (3.5-5.1) mmol/L Carbon Dioxide (22-30) mmol/L BUN (9-20) mg/dL Creatinine (0.66-1.25) mg/dL Glucose (74-99) mg/dL Phosphorus (2.5-4.5) mg/dL Magnesium (1.6-2.3) mg/dL Total Bilirubin (0.2-1.3) mg/dL AST (17-59) U/L Alkaline Phosphatase (38-126) U/L Albumin (3.5-5.0) g/dL Lipase (23-300) U/L Urine Blood Trace H (Negative) Urine Bacteria Rare H (None) /hpf Hyaline Casts 12 H (0-2) /lpf Urine Mucus Rare H (None) /hpf Assessment and Plan Assessment: Hypotension Acute kidney injury abd distension secondary to ascitis , status post paracentesis with 7.3 L removed Chronically elevated lipase, asymptomatic liver mass, patient will need liver biopsy and follow-up. As an outpatient. Also patient has elevated alpha-fetoprotein at 490 from 10/27/2019 Liver cirrhosis with possible portal hypertension acute kidney injury , improved Recent history of alcohol abuse, most likely his liver disease is related to his alcohol abuse and complication diabetes mellitus hypertension sleep apnea on cpap Plan: this is a pleasant 69 yo M who presents with marisol and hypotension after paracentesis. Continue with encouraging hydration, GI consult, follow-up creatinine and sodium level Last time he was the hospital we held metformin and put pt on ISS, hold clint inh (Moexipril) and spironolactone. Following recommendation by GI consult Labs and medication were reviewed.. Continue same treatment. Continue with symptomatic treatment. Resume home medication. Monitor lytes and vitals. DVT and GI prophylaxis. Further recommendations of the clinical course of the patient DVT prophylaxis: Subcutaneous heparin GI Prophylaxis: Pepcid PT/OT: No need, gait is at baseline Prognosis is guarded
[2019-12-02] MEDS: SODIUM CHLORIDE 0.9% 1,000 ML IV SCH (14:08)
[2019-12-02] MEDS: PANTOPRAZOLE 40 MG/10 ML VIAL IV SCH (14:10)
--- NOTE | 2019-12-02 18:16 | CONS ---
CONSULTATION DATE OF DICTATION: 12/02/2019 This patient is a 69-year-old pleasant white male who was recently hospitalized with new-onset ascites in September of 2019. He was subsequently diagnosed with liver cirrhosis with portal hypertension and ascites, underwent large-volume paracentesis at that time, and 13 liters of fluid was removed. He was re-admitted on November 11 of this year with the same complaints, requiring a second paracentesis, and at the same time he had a CT of the abdomen and pelvis done during that hospitalization which showed a 6 cm heterogeneous lesion in the liver suspicious for neoplasm. The patient was seen by Dr. Lai as an outpatient yesterday. He was scheduled for liver biopsy today as well as paracentesis. He had about 7 liters of fluid that was removed. Following that he became hypotensive and hence the liver biopsy was canceled. Patient was sent to the emergency room and subsequently admitted to the hospital for further evaluation. The patient denies any abdominal pain. He reports no nausea or vomiting. Overall he feels fatigued, tired, with weight loss of 15 pounds in the last 2 months' duration. He has been on Lasix 20 mg daily on an outpatient basis. He has a history of heavy alcohol use in the past. He quit drinking 2 months ago. PAST MEDICAL HISTORY: Significant for diabetes mellitus, hypertension, sleep apnea, liver cirrhosis diagnosed in September of 2019, ascites requiring paracentesis. PAST SURGICAL HISTORY: Hydrocele repair, cardiac catheterization, 3 paracenteses so far. SOCIAL HISTORY: Chronic alcohol use and chronic smoker. HOME MEDICATIONS: Tylenol, Lasix and Ambien. FAMILY HISTORY: Unremarkable. REVIEW OF SYSTEMS: CARDIOPULMONARY: No chest pain or shortness of breath. GENITOURINARY: No dysuria or hematuria. MUSCULOSKELETAL: Unremarkable. SKIN: Unremarkable. ENDOCRINE: Unremarkable. PSYCHIATRIC: Unremarkable. NEUROLOGY: Unremarkable. ENT/VISION: Unremarkable. CONSTITUTIONAL: No recent weight loss. No fever, chills, night sweats. PHYSICAL EXAMINATION: Blood pressure is 100/62, pulse rate 85, temperature 97.4. HEENT examination unremarkable. Conjunctivae pink. Sclerae anicteric. Oral cavity no lesions. NECK: No JVD or lymph node enlargement. CHEST: Clear to auscultation. HEART: Regular rate and rhythm. ABDOMEN: Slightly distended. There was small umbilical hernia noted. There was no free fluid noted. No organomegaly. EXTREMITIES: Trace pedal edema. SKIN: No rashes. NEUROLOGIC: Alert and oriented x3. No focal deficits. LABS: WBC 7.7, hemoglobin 12.9, platelets 64. INR 1.3. Sodium 126, potassium 5.5. BUN 76, creatinine 2.09, bilirubin 2.4, AST 124, ALT 42, alkaline phosphatase 142. Alpha fetoprotein was 530 two weeks ago. IMPRESSION: 1. Alcoholic cirrhosis of the liver with portal hypertension and ascites requiring paracentesis, status post paracentesis this morning, and 7 liters of the fluid was removed. 2. Liver mass noted on CT scan in October of 2019. He subsequently had a PET scan done that showed findings suggestive of metastatic disease to the mediastinum and the retroperitoneum/primary liver tumor suspected. The patient is scheduled for an ultrasound-guided liver biopsy tomorrow. 3. Elevated BUN and creatinine. Rule out prerenal azotemia versus chronic kidney disease. Nephrology has been consulted. 4. Hyponatremia. 5. Hyperkalemia. RECOMMENDATIONS: 1. Gentle IV hydration. 2. Re-scheduled for ultrasound-guided liver biopsy tomorrow morning. 3. Consult Oncology as well as Nephrology. 4. Repeat labs in the morning. Will follow with you closely during his hospital stay. Thank you for this consultation. MMODL / IJN: [id number] /
[2019-12-03] MEDS: SODIUM CHLORIDE 0.9% 1,000 ML IV SCH ×3 (00:15→15:39)
--- NOTE | 2019-12-03 07:24 | P.PN ---
Subjective this is a pleasant 69 yo M with past medical history of hypertension, Diabetes mellitus, sleep apnea on cpap , ascites, elevated lipase, liver mass with elevated alpha-fetoprotein at 490 from 10/27/2019, Liver cirrhosis with possible portal hypertension, Recent history of alcohol abuse, most likely his liver disease is related to his alcohol abuse and complication, thrombocytopenia and history of acute kidney injury. Patient was transferred to the emergency room because of drop in his blood pressure while having paracentesis done today, as p er documents his systolic blood pressure dropped from 93 down to 70s, with 7.3 L removed, he received of vomiting in the emergency room and his blood pressure went into the low 90s again. Patient has some tachypnea however he denies chest pain or abdominal pain or nausea vomiting or change in urine or bowel habits Patient also telling me he is supposed to get liver biopsy after the paracentesis however his blood pressure dropped so they postponed the procedure His labs showing stable WBC, hemoglobin 12.9 and chronic thrombocytopenia at 64 currently. INR is 1.3, sodium 126, potassium 5.5, creatinine was elevated at 2.0 last admission was elevated to 0.6, 2.3, came back to normal to 0.9-1.2 upon discharge. Troponin is negative. Chest x-ray showing chronic changes with a bronchitis, benign granuloma in the left upper lobe, nipple shadow 12/03/2019 Patient feels better today with no abdominal pain, no dyspnea. No other complaints and is tolerating diet well. He is hemodynamically stable and his blood pressure is improved, its 104/57 this morning. Afebrile. He is on normal saline and 1 20 mL/h, were going to monitor his sodium of 126 and potassium 5.5 and creatinine 2.0. Nephrology and oncology team have been consulted. Patient is planned to have ultrasound-guided liver biopsy for his liver mass with possible metastases disease on recent PET scan including the mediastinum. Also patient has history of increased alpha-fetoprotein CONSTITUTIONAL: No fever, no malaise, no fatigue. HEENT: No recent visual problems or hearing problems. Denied any sore throat. CARDIOVASCULAR: No orthopnea, PND, no palpitations, no syncope. PULMONARY: No shortness of breath, no cough, no hemoptysis. GASTROINTESTINAL: No diarrhea, no nausea, no vomiting, no abdominal pain. Normoactive bowel sounds. NEUROLOGICAL: No headaches, no weakness, no numbness. HEMATOLOGICAL: Denies any bleeding or petechiae. GENITOURINARY: Denies any burning micturition, frequency, or urgency. MUSCULOSKELETAL/RHEUMATOLOGICAL: Denies any joint pain, swelling, or any muscle pain. ENDOCRINE: Denies any polyuria or polydipsia. Active Medications Generic Name Dose Route Start Last Admin Trade Name Christianq PRN Reason Stop Dose Admin Sodium Chloride 1,000 mls @ 120 mls/hr 12/02/19 13:15 12/03/19 06:07 Saline 0.9% IV 120 mls/hr .[id number] LISSETTE Administration Naloxone HCl 0.2 mg 12/02/19 13:15 Narcan IV Q2M PRN Opioid Reversal Pantoprazole Sodium 40 mg 12/02/19 13:30 12/02/19 14:10 Protonix IV 40 mg DAILY LISSETTE Administration Objective - Vital Signs Vital signs: Vital Signs Temp 97.7 F 12/03/19 05:35 Pulse 78 12/03/19 05:35 Resp 18 12/03/19 05:35 BP 104/57 12/03/19 05:35 Pulse Ox 96 12/03/19 05:35 Intake & Output 12/02/19 12/03/19 12/03/19 18:59 06:59 18:59 Weight 90.718 kg Other: # Voids 5 # Bowel Movements 0 - Exam GENERAL: The patient is alert and oriented x3, not in any acute distress. Well developed, well nourished. HEENT: Pupils are round and equally reacting to light. EOMI. No scleral icterus. No conjunctival pallor. Normocephalic, atraumatic. No pharyngeal erythema. No thyromegaly. CARDIOVASCULAR: S1 and S2 present. No murmurs, rubs, or gallops. PULMONARY: Chest is clear to auscultation, no wheezing or crackles. ABDOMEN: Soft, nontender, nondistended, normoactive bowel sounds. No palpable organomegaly. MUSCULOSKELETAL: No joint swelling or deformity. EXTREMITIES: No cyanosis, clubbing, or pedal edema. NEUROLOGICAL: Gross neurological examination did not reveal any focal deficits. SKIN: No rashes. No petechiae - Labs CBC & Chem 7: 12/02/19 11:40 12/02/19 11:40 Labs: Abnormal Lab Results - Last 24 Hours (Table) 12/02/19 12/02/19 12/02/19 Range/Units 11:40 11:40 11:40 RBC 3.51 L (4.30-5.90) m/uL Hgb 12.9 L (13.0-17.5) gm/dL Hct 37.7 L (39.0-53.0) % MCV 107.4 H (80.0-100.0) fL MCH 36.9 H (25.0-35.0) pg Plt Count 64 L (150-450) k/uL Lymphocytes # 0.6 L (1.0-4.8) k/uL Monocytes # 1.4 H (0-1.0) k/uL PT 13.1 H (9.0-12.0) sec INR 1.3 H (<1.2) Sodium 126 L (137-145) mmol/L Potassium 5.5 H (3.5-5.1) mmol/L Carbon Dioxide 17 L (22-30) mmol/L BUN 76 H (9-20) mg/dL Creatinine 2.09 H (0.66-1.25) mg/dL Glucose 100 H (74-99) mg/dL Phosphorus 5.0 H (2.5-4.5) mg/dL Magnesium 2.6 H (1.6-2.3) mg/dL Total Bilirubin 2.4 H (0.2-1.3) mg/dL AST 124 H (17-59) U/L Alkaline Phosphatase 142 H (38-126) U/L Albumin 3.2 L (3.5-5.0) g/dL Lipase 1127 H (23-300) U/L Urine Blood (Negative) Urine Bacteria (None) /hpf Hyaline Casts (0-2) /lpf Urine Mucus (None) /hpf 12/02/19 Range/Units 12:01 RBC (4.30-5.90) m/uL Hgb (13.0-17.5) gm/dL Hct (39.0-53.0) % MCV (80.0-100.0) fL MCH (25.0-35.0) pg Plt Count (150-450) k/uL Lymphocytes # (1.0-4.8) k/uL Monocytes # (0-1.0) k/uL PT (9.0-12.0) sec INR (<1.2) Sodium (137-145) mmol/L Potassium (3.5-5.1) mmol/L Carbon Dioxide (22-30) mmol/L BUN (9-20) mg/dL Creatinine (0.66-1.25) mg/dL Glucose (74-99) mg/dL Phosphorus (2.5-4.5) mg/dL Magnesium (1.6-2.3) mg/dL Total Bilirubin (0.2-1.3) mg/dL AST (17-59) U/L Alkaline Phosphatase (38-126) U/L Albumin (3.5-5.0) g/dL Lipase (23-300) U/L Urine Blood Trace H (Negative) Urine Bacteria Rare H (None) /hpf Hyaline Casts 12 H (0-2) /lpf Urine Mucus Rare H (None) /hpf Assessment and Plan Assessment: Hypotension, and pulling Acute kidney injury abd distension secondary to ascitis , status post paracentesis with 7.3 L rem nancy Chronically elevated lipase, asymptomatic liver mass, patient will need liver biopsy and follow-up. Also patient has elevated alpha-fetoprotein at 490 from 10/27/2019 Liver cirrhosis with possible portal hypertension acute kidney injury , improved Recent history of alcohol abuse, most likely his liver disease is related to his alcohol abuse and complication diabetes mellitus hypertension sleep apnea on cpap Plan: this is a pleasant 69 yo M who presents with marisol and hypotension after paracentesis. Continue with parenteral hydration, GI consult, follow-up cr eatinine and sodium level. Follow-up recommendation by oncologist and rent collector Last time he was the hospital we held metformin and put pt on ISS, hold clint inh (Moexipril) and spironolactone. Following recommendation by GI consult Labs and medication were reviewed.. Continue same treatment. Continue with symptomatic treatment. Resume home medication. Monitor lytes and vitals. DVT and GI prophylaxis. Further recommendations of the clinical course of the patient DVT prophylaxis: Subcutaneous heparin GI Prophylaxis: Pepcid PT/OT: No need, gait is at baseline Prognosis is guarded
[2019-12-03] MEDS: PANTOPRAZOLE 40 MG/10 ML VIAL IV SCH (08:14)
[2019-12-03 09:15] LABS: HCT 37.5 % (39.0-53.0); HGB 12.6 gm/dL (13.0-17.5); MCH 36.6 pg (25.0-35.0); MCHC 33.6 g/dL (31.0-37.0); MCV 108.8 fL (80.0-100.0); Macrocytosis Moderate; Mean Platelet Volume 8.4; RBC 3.44 m/uL (4.30-5.90); RDW 13.2 % (11.5-15.5); WBC 5.2 k/uL (3.8-10.6)
[2019-12-03 09:33] LABS: Albumin 2.5 g/dL (3.5-5.0); Bilirubin, Delta 0.9 mg/dL (0.0-0.2); Bilirubin,Unconjugated 1.3 mg/dL (0.0-1.1); Calcium 8.2 mg/dL (8.4-10.2); Magnesium 2.1 mg/dL (1.6-2.3); Phosphorus 3.7 mg/dL (2.5-4.5); Potassium 5.1 mmol/L (3.5-5.1); Total Bilirubin 2.2 mg/dL (0.2-1.3); Total Protein 5.6 g/dL (6.3-8.2)
[2019-12-03 10:30] LABS: Platelet Count 70 k/uL (150-450)
[2019-12-03 11:08] LABS: Eosinophils # (M) 0.16 k/uL (0-0.7); Lymphocytes # (M) 0.26 k/uL (1.0-4.8); Monocytes # (M) 1.04 k/uL (0-1.0); Neutrophils # (M) 3.74 k/uL (1.3-7.7); Neutrophils % (M) 72 %; Nucleated Red Blood Cells 0 /100 WBC (0-0); Total Cells Counted 100
[2019-12-03 11:15] LABS: Anisocytosis (M) Present; Poikilocytosis (M) Present
[2019-12-03] MEDS ORDERED: HYDROmorphone 0.5 MG/0.5 ML SYRINGE IVP STA (11:18)
--- NOTE | 2019-12-03 11:26 | P.NPCON ---
History of Present Illness - Reason for Consult acute renal failure - History of Present Illness Reason for consultation: Acute kidney injury History of present illness: Patient is a 69-year-old male seen in renal consultation for acute kidney injury. Patient's baseline creatinine is near 1 and was elevated at 2.09 on admission yesterday. Patient underwent paracentesis with over 7 L drained yesterday. Patient's blood pressure dropped and he was subsequently advised to be admitted. Patient then received IV albumin as well as IV fluids and his renal function is not improving. Creatinine is down to 1.21 today. He admits to good urine output. No hematuria or dysuria. Denies use of nonsteroidals. Patient has history of alcohol-induced liver cirrhosis. Is also concern for liver mass any scheduled to undergo liver biopsy later today. Denies chest pain or shortness of breath. Feels better after paracentesis. Denies family history of renal disease. Vital signs are stable. General: The patient appeared well nourished and normally developed. HEENT: Head exam is unremarkable. Neck is without jugular venous distension. LUNGS: Lungs are clear to auscultation and percussion. Breath sounds decreased. HEART: Rate and Rhythm are regular. First and second heart sounds normal. No murmurs, rubs or gallops. ABDOMEN: Abdominal exam reveals normal bowel sounds. Non-tender and non- distended. No evidence of peritonitis. EXTREMITITES: No clubbing, cyanosis, or edema. Past Medical History Past Medical History: Cancer, Chest Pain / Angina, Diabetes Mellitus, Hypertension, Liver Disease, Sleep Apnea/CPAP/BIPAP Additional Past Medical History / Comment(s): Liver cirrhosis, ascities, liver lesion (to be biopsied 12/03/[address] [facility]), pancreatitis, NIDDM type II but pt states he was recently taken off diabetic meds, MICHELL with CPap use, IBS, basal cell skin cancer with removals. History of Any Multi-Drug Resistant Organisms: None Reported Past Surgical History: Heart Catheterization, Hernia Repair Additional Past Surgical History / Comment(s): Paracentesis x3 last time 12/02/19, bilateral hydrocele repair/R inguinal hernia, skin cancer removal, bilateral cataract removals/lens implants, colonoscopy Past Anesthesia/Blood Transfusion Reactions: No Reported Reaction Smoking Status: Former smoker - Past Family History Mother Family Medical History: Asthma Additional Family Medical History / Comment(s): Mother of asthma at the age of 63 yrs. Father Family Medical History: Hyperlipidemia, Hypertension Additional Family Medical History / Comment(s): Father lived to be 89yrs old. Medications and Allergies Home Medications Medication Instructions Recorded Confirmed Type Furosemide [Lasix] 20 mg PO DAILY #30 tab 11/13/19 12/02/19 Rx Zolpidem [Ambien] 10 mg PO HS PRN 12/02/19 12/02/19 History Allergies Allergy/AdvReac Type Severity Reaction Status Date / Time No Known Allergies Allergy Verified 12/02/19 14:39 Physical Exam Vitals: Vital Signs Temp Pulse Pulse Resp BP BP Pulse Ox 12/03/19 08:00 78 12/03/19 05:35 97.7 F 78 18 104/57 96 12/02/19 23:13 81 18 12/02/19 21:22 97.5 F L 81 18 106/64 98 12/02/19 17:42 103/67 12/02/19 16:00 18 12/02/19 15:43 69 18 109/63 98 12/02/19 15:00 97.4 F L 85 16 100/62 91 L 12/02/19 14:11 72 18 100/56 99 12/02/19 13:00 79 18 97/51 96 12/02/19 12:05 82 16 91/43 99 12/02/19 11:28 97.6 F 81 18 88/32 99 Intake and Output 12/02/19 12/03/19 12/03/19 22:59 06:59 14:59 Other: # Voids 3 5 2 # Bowel Movements 0 Results - Lab Results Most recent lab results Calcium 8.2 mg/dL (8.4-10.2) L 12/03/19 07:41 Phosphorus 3.7 mg/dL (2.5-4.5) 12/03/19 07:41 Magnesium 2.1 mg/dL (1.6-2.3) 12/03/19 07:41 12/03/19 07:41 12/03/19 07:41 Assessment and Plan Plan: Assessment: 1. Acute kidney injury mostly prerenal secondary to hypotension and intravascular depletion from large volume paracentesis. Improved with IV hydration. Creatinine was 2.09 on admission is 1.21 today. No proteinuria on UA. 2. Alcohol-induced liver cirrhosis. 3. Concern for liver mass. Scheduled for liver biopsy today. 4. Ascites status post paracentesis with over 7 L drained yesterday. 5. Hypovolemic hyponatremia improved with IV hydration. 6. Metabolic acidosis secondary to acute kidney injury. Plan: I with decreased the rate of normal saline to 70 mL an hour. Hold Lasix for now. Upon discharge he can resume Lasix 20 mg orally twice daily. I also advised patient to follow a low-salt and a 50 oz fluid restricted diet. Patient will also need IV albumin before and after paracentesis outpatient. Avoid nephrotoxins. Repeat electrolytes in the morning. Thank you for the consultation. I will continue to follow the patient is due during his hospital stay.
--- NOTE | 2019-12-03 11:53 | P.PCN ---
Date of Procedure: 12/03/19 Preoperative Diagnosis: liver mass Anesthesia: local Estimated Blood Loss (ml): 5 Pathology: other (18 ga core to path in formalin) Operative Findings: 1 pass
--- NOTE | 2019-12-03 12:21 | US ---
EXAMINATION TYPE: US biopsy liver DATE OF EXAM: 12/03/2019 HISTORY: Left lobe liver mass. FINDINGS: Maximal barrier technique was utilized. Hand hygiene achieved with soap and water and alco hol-based hand rub. The skin overlying a suitable path to the patient's mass in the left lobe was loc alized with ultrasound and the overlying skin prepped and draped. Ultrasound was utilized with steri le technique. Lidocaine was used for local anesthesia. A skin kaci was made with a scalpel. An 18- gauge needle was advanced under direct ultrasound guidance and core specimen obtained of the mass. [S rtixie] pass made. Specimen submitted in formalin to Pathology. Following the procedure, hemostasis achieved and the patient is discharged in stable condition without complication. IMPRESSION:STATUS POST ULTRASOUND GUIDED CORE BIOPSY OF right lobe liver MASS, PATHOLOGY IS PENDING. THIS PROCEDURE IS PERFORMED BY THE UNDERSIGNED.
[2019-12-03 13:39] VITALS: BMI 27.1
[2019-12-03 13:57] VITALS: TEMP 99.4
--- NOTE | 2019-12-03 15:37 | P.DS ---
Providers Date of admission: 12/02/19 13:15 Attending physician: Ramiro Gamez MD Consults: 12/02/19 13:15 Consult Physician Urgent Consulting Provider: Gonzalez Lai Consult Reason/Comments: Cirrhosis with hypertension, liver metastases Do you want consulting provider notified?: Yes Consult Physician Urgent Consulting Provider: Gonzalez Lai Consult Reason/Comments: Liver disease Do you want consulting provider notified?: Yes 12/02/19 14:05 Consult Physician Routine Consulting Provider: Ramila Dave Consult Reason/Comments: Acute kidney injury, cirrhosis of liver, hypotensive Do you want consulting provider notified?: Yes 12/02/19 14:08 Consult Physician Routine Consulting Provider: Jose Armando Gooden Consult Reason/Comments: liver mass, metastasis Do you want consulting provider notified?: Yes Primary care physician[facility] Course: Diagnoses: Hypotension, and secondary to paracentesis, improved with IV hydration liver mass, status post liver biopsy and follow-up the results. Also patient has elevated alpha-fetoprotein at 490 from 10/27/2019 Acute kidney injury. Improved abd distension secondary to ascitis , status post paracentesis with 7.3 L removed Chronically elevated lipase, asymptomatic Liver cirrhosis with possible portal hypertension acute kidney injury , improved Recent history of alcohol abuse, most likely his liver disease is related to his alcohol abuse and complication diabetes mellitus hypertension sleep apnea on cpap Hospital course this is a pleasant 69 yo M with past medical history of hypertension, Diabetes mellitus, sleep apnea on cpap , ascites, elevated lipase, liver mass with elevated alpha-fetoprotein at 490 from 10/27/2019, Liver cirrhosis with possible portal hypertension, Recent history of alcohol abuse, most likely his liver disease is related to his alcohol abuse and complication, thrombocytopenia and history of acute kidney injury. Patient was transferred to the emergency room because of drop in his blood pressure while having paracentesis done, as per documents his systolic blood pressure dropped from 93 down to 70s, with 7.3 L removed, he received intravenous fluid in the emergency room and his blood pressure went into the low 90s again. Because of drop in his blood pressure, liver biopsy procedure was not done that day, patient had ultrasound-guided liver biopsy done on 12/03/2019, with the results for liver biopsies pending. Patient and family at bedside are aware they need to follow-up the results of the biopsy, risk of cancer are well known for the patient. An appointment is made with GI and PCP and patient agrees with these appointments Lalita since he will follow-up. Also oncology team evaluated the patient and contacted the office they stated they will contact the patient and spouse for an appointment. Postprocedure patient denies other symptoms, no abdominal pain, no chest pain no dyspnea, his weight is stable. No change in urine or bowel habits. No fever. Patient was keen to be discharged today. prior to discharge his creatinine came back to normal, sodium improved Patient was cleared for discharge by all consultants including GI, utilization management nurse, oncologist. Patient will be discharged on Lasix 20 twice daily with soft restriction Problems and management plan were discussed with the patient and he verbalized understanding and acceptance Patient was found stable and can be discharged home however he needs follow-up as an outpatient. Patient was instructed to follow up with PCP within one week and patient agrees Gen: patient is a AAOx3, no distress CVS: S1-S2, RRR, no murmur Lungs: B/L CTA, no wheezing Abdomen: soft, no distention, no tenderness, positive bowel sounds Extremity: no leg edema or induration Time spent more than 35 minutes Plan - Discharge Summary Discharge Rx Participant: No New Discharge Prescriptions: New Furosemide [Lasix] 20 mg PO BID #60 tab Continue Zolpidem [Ambien] 10 mg PO HS PRN PRN Reason: Insomnia Discontinued Furosemide [Lasix] 20 mg PO DAILY #30 tab Discharge Medication List Zolpidem [Ambien] 10 mg PO HS PRN 12/02/19 [History] Furosemide [Lasix] 20 mg PO BID #60 tab 12/03/19 [Rx] Follow up Appointment(s)/Referral(s): Jose Armando Gooden MD [STAFF PHYSICIAN] - 1 Week (office will contact patient for follow up plan) Monie Tapia MD [Primary Care Provider] - 12/05/19 2:00 pm (with Jean Paul Castañeda) Gonzalez Lai MD [STAFF PHYSICIAN] - 12/19/19 12:30 pm () Patient Instructions/Handouts: Fine Needle Aspiration Biopsy (DC) Activity/Diet/Wound Care/Special Instructions: ok to remove bandaid from biopsy 12/04 ok to shower 12/04 no NSAIDS for 24 hours
[2019-12-03 15:45] VITALS: BP 96/64; PULSE 96
--- NOTE | 2019-12-03 16:44 | PN ---
PROGRESS NOTE DATE OF SERVICE: 12/03/2019 The patient is a 69-year-old, pleasant, white male admitted to the hospital following paracentesis yesterday, after which he became hypotensive. He was noted to have a 6 cm mass in the liver that was scheduled for liver biopsy yesterday but was canceled and was done this morning. In the meantime, patient is feeling much better. He wants to go home. He has seen Oncology and has a followup with them next week. He denies any abdominal pain. No nausea or vomiting. PHYSICAL EXAMINATION: VITAL SIGNS: Blood pressure is 96/60, pulse rate 87, temperature 98. HEENT: Unremarkable. Conjunctivae pink. Sclerae anicteric. Oral cavity no lesions. NECK: No JVD or lymph node enlargement. CHEST: Clear to auscultation. HEART: Regular rate and rhythm. ABDOMEN: Soft. Bowel sounds are positive. No organomegaly. EXTREMITIES: No pedal edema. SKIN: No rashes. NEUROLOGIC: Alert and oriented x3. No focal deficits. LABS: Labs done today show WBC 5.2, hemoglobin 12.6, platelets 70,000. IMPRESSION: 1. Alcoholic cirrhosis of the liver complicated with liver metastasis, possible hepatocellular carcinoma, status post liver biopsy, results of which are still pending. 2. Lesions in the mediastinum suspicious for metastatic malignancy. 3. Alcohol cirrhosis of the liver with gradual decompensation. 4. Refractory ascites requiring large-volume paracentesis. 5. Mild renal insufficiency secondary to prerenal azotemia. BUN and creatinine are improving. RECOMMENDATIONS: 1. Advance diet as tolerated. 2. The patient can be discharged home today with an outpatient followup with Dr. Lai in a week. 3. Continue with current dose of diuretics and will follow with you closely. Thank you for this consultation. MMODL / IJN: [id number] /
--- NOTE | 2019-12-03 17:32 | P.CONS ---
History of Present Illness - Reason for Consult Consult date: 12/03/19 liver lesions, abd adenopathy-PET + Requesting physician: Kindra Bauer - Chief Complaint dehydration - History of Present Illness Mr. Stoner is a very pleasant 69-year-old male with acute changes in his health that began at the end of September. Patient was seen 10/26 for abdominal pain, abdominal x-ray was nonspecific. CT scan on 10/27 revealed cirrhosis with portal vein hypertension, splenomegaly and ascites, a 2.5 cm lesion was seen in the liver. Patient had a paracentesis. Cytology was negative. Patient had an ultrasound of the gallbladder on November 10, confirming liver mass, abdominal CT showed cirrhosis, the liver mass was now looking as though it was 5-6 cm in size. Patient was scheduled for biopsy. Patient was admitted with dehydration and confusion, elevated amylase, unconjugated bilirubin increased and AFP is 539. As of note, prior to admission, patient had a PET scan on 11/23, liver lesion as well as mediastinal and retroperitoneal lymph nodes were avid Denies any previous personal history of cancer, he denies any bleeding, maybe some easy bruising, patient has a strong history of EtOH abuse previously, no fevers, chills, difficulty swallowing, he quit smoking back in the s, has abdominal distention but denies pain, he is been positive for confusion intermittently recently, diarrhea is his norm, no changes in stool color. Review of Systems 14 point review of systems is negative except as stated in HPI Past Medical History Past Medical History: Cancer, Chest Pain / Angina, Diabetes Mellitus, Hypertension, Liver Disease, Sleep Apnea/CPAP/BIPAP Additional Past Medical History / Comment(s): Liver cirrhosis, ascities, liver lesion (to be biopsied 12/03/19 at [facility]), pancreatitis, NIDDM type II but pt states he was recently taken off diabetic meds, MICHELL with CPap use, IBS, basal cell skin cancer with removals. History of Any Multi-Drug Resistant Organisms: None Reported Past Surgical History: Heart Catheterization, Hernia Repair Additional Past Surgical History / Comment(s): Paracentesis x3 last time 12/02/19, bilateral hydrocele repair/R inguinal hernia, skin cancer removal, bilateral cataract removals/lens implants, colonoscopy Past Anesthesia/Blood Transfusion Reactions: No Reported Reaction Past Psychological History: No Psychological Hx Reported Smoking Status: Former smoker Past Alcohol Use History: Heavy (past) Past Drug Use History: None Reported - Past Family History Mother Family Medical History: Asthma Additional Family Medical History / Comment(s): Mother of asthma at the age of 63 yrs. Father Family Medical History: Hyperlipidemia, Hypertension Additional Family Medical History / Comment(s): Father lived to be 89yrs old. Medications and Allergies Home Medications Medication Instructions Recorded Confirmed Type Zolpidem [Ambien] 10 mg PO HS PRN 12/02/19 12/02/19 History Furosemide [Lasix] 20 mg PO BID #60 tab 12/03/19 Rx Allergies Allergy/AdvReac Type Severity Reaction Status Date / Time No Known Allergies Allergy Verified 12/02/19 14:39 Physical Exam Vitals: Vital Signs Temp Pulse Resp BP Pulse Ox 12/03/19 15:31 96 96/64 12/03/19 15:16 121 H 88/49 12/03/19 15:01 90 98/55 12/03/19 14:46 87 96/60 12/03/19 14:31 98 103/68 12/03/19 14:16 87 129/66 12/03/19 14:01 80 101/64 12/03/19 13:46 99.4 F 101 H 103/68 12/03/19 13:31 105 H 110/70 12/03/19 13:16 103 H 109/71 12/03/19 13:01 102 H 113/62 12/03/19 12:46 91 105/66 12/03/19 12:33 91 98/61 12/03/19 12:16 86 110/69 12/03/19 12:01 92 97/66 97 12/03/19 11:30 18 116/68 96 12/03/19 11:15 76 18 104/61 96 12/03/19 11:00 78 18 101/56 95 12/03/19 08:00 78 12/03/19 05:35 97.7 F 78 18 104/57 96 12/02/19 23:13 81 18 12/02/19 21:22 97.5 F L 81 18 106/64 98 12/02/19 17:42 103/67 Intake and Output 12/03/19 12/03/19 12/03/19 06:59 14:59 22:59 Other: # Voids 5 2 1 Weight 90.718 kg - Constitutional General appearance: average body habitus, cooperative, no acute distress - EENT Eyes: anicteric sclerae, EOMI ENT: hearing grossly normal, normal oropharynx - Neck Neck: no lymphadenopathy - Respiratory Respiratory: bilateral: CTA - Cardiovascular Rhythm: regular Heart sounds: normal: S1, S2 Abnormal Heart Sounds: no systolic murmur, no diastolic murmur, no rub, no S3 Gallop, no S4 Gallop, no click, no other leg Peripheral Edema: bilateral: Trace - Gastrointestinal General gastrointestinal: distended, normal bowel sounds, soft - Integumentary bronzed skin tone - Neurologic Neurologic: CNII-XII intact - Psychiatric slightly impaired recall Psychiatric: A&O x's 3, appropriate affect, intact judgment & insight Results CBC & Chem 7: 12/03/19 07:41 12/03/19 07:41 Labs: Abnormal Lab Results - Last 24 Hours (Table) 12/03/19 12/03/19 12/03/19 Range/Units 07:41 07:41 07:41 RBC 3.44 L (4.30-5.90) m/uL Hgb 12.6 L (13.0-17.5) gm/dL Hct 37.5 L (39.0-53.0) % MCV 108.8 H (80.0-100.0) fL MCH 36.6 H (25.0-35.0) pg Plt Count 70 L (150-450) k/uL Lymphocytes # (Manual) 0.26 L (1.0-4.8) k/uL Monocytes # (Manual) 1.04 H (0-1.0) k/uL Sodium 132 L (137-145) mmol/L Carbon Dioxide 20 L (22-30) mmol/L BUN 56 H (9-20) mg/dL Calcium 8.2 L (8.4-10.2) mg/dL Total Bilirubin 2.2 H (0.2-1.3) mg/dL Unconjugated Bilirubin 1.3 H (0.0-1.1) mg/dL Delta Bilirubin 0.9 H (0.0-0.2) mg/dL AST 101 H (17-59) U/L Total Protein 5.6 L (6.3-8.2) g/dL Albumin 2.5 L (3.5-5.0) g/dL Lipase 957 H (23-300) U/L Comments: PET scan report reviewed Abdominal x-ray: report reviewed CT scan - abdomen: report reviewed US - abdomen: report reviewed Assessment and Plan (1) Liver mass Narrative/Plan: Liver mass, biopsy today by Gastroenterology. Discussed with patient concerns for PET scan findings showing avid lesions in liver as well as some mediastinal and retroperitoneal lymph nodes. Explained that pathology confirmation is necessary, biopsy sched for today. Stage and Prognosis were reviewed, if biopsy confirms malignancy. Based on the PET scan, disease would be a stage IV. This means disease is treatable for some time but not curable, surgery is not an option as there would be disease left behind. Prognosis is variable and depends on the physical condition the patient is in as well as the condition of the patient's liver. All questions were answered to the pt and family satisfaction by Dr. Gooden. Options for treatment will be based on pathology. Patient and family member verbalized understanding the plan. Patient's information will be taken, pathology will be monitored for and follow- up appointment made to discuss treatment options in the next 1-1/2-2 weeks. Contact information for the office was given to the family. Current Visit: Yes Status: Acute Priority: High Code(s): R16.0 - HEPATOMEGALY, NOT ELSEWHERE CLASSIFIED SNOMED Code(s): 693725695 Plan: attests: I have performed history and physical exam on patient, developed impression and plan of care, discussed with dictator. Agree with dictation, documented as a scribe
== END 2019-12-03 17:27 | disposition home or self-care (01) | DRG 436 ==
LOC: EC 11:23 → 6NMEDSUR 13:15
PROVIDERS: ADMIT Internal Medicine; ATTEND Internal Medicine
PROC: 0FB13ZX Excision of Right Lobe Liver, Percutaneous Approach, Diagnostic (ICD-10-PCS; principal; 2019-12-03)
DX: C78.7 Secondary malignant neoplasm of liver and intrahepatic bile duct (principal); E87.1 Hypo-osmolality and hyponatremia; E87.2 Acidosis; K76.6 Portal hypertension; N17.9 Acute kidney failure, unspecified; D69.6 Thrombocytopenia, unspecified; E11.9 Type 2 diabetes mellitus without complications; E86.0 Dehydration; E86.1 Hypovolemia; E87.5 Hyperkalemia; K70.31 Alcoholic cirrhosis of liver with ascites; F17.200 Nicotine dependence, unspecified, uncomplicated; G47.33 Obstructive sleep apnea (adult) (pediatric); Z99.89 Dependence on other enabling machines and devices; I10 Essential (primary) hypertension; J40 Bronchitis, not specified as acute or chronic; Z79.899 Other long term (current) drug therapy; Z82.49 Family history of ischemic heart disease and other diseases of the circulatory system; Z82.5 Family history of asthma and other chronic lower respiratory diseases; Z85.828 Personal history of other malignant neoplasm of skin; Z98.42 Cataract extraction status, left eye; Z98.41 Cataract extraction status, right eye; Z96.1 Presence of intraocular lens; R16.1 Splenomegaly, not elsewhere classified; K58.9 Irritable bowel syndrome, unspecified; I95.9 Hypotension, unspecified; F10.11 Alcohol abuse, in remission
CPT/HCPCS: 36415; 47000; 71046; 76942; 80053; 80076; 81001; 82150; 83605; 83690; 83735; 84100; 84484; 85025; 85610; 85730; 88307; 88313; 88341; 88342; 96361; 96374; 99285

== ENCOUNTER 2019-12-09 12:54 | Day surgery (SDC) | payer MEDICARE ==
[2019-12-09 13:26] VITALS: TEMP 97.8
[2019-12-09 13:39] LABS: INR 1.3 (<1.2)
[2019-12-09 13:41] LABS: Mean Platelet Volume 8.7
[2019-12-09 13:51] LABS: Platelet Count 88 k/uL (150-450)
[2019-12-09 14:35] LABS: Glucose,Whole Blood 134 mg/dL (75-99)
[2019-12-09] MEDS: ALBUMIN HUMAN 25% 50 ML in EMPTY BAG 1 BAG IVPB SCH ×4 (14:45→15:17)
[2019-12-09 15:19] VITALS: PULSE 78; RESP 16
[2019-12-09 15:38] VITALS: BP 105/74
--- NOTE | 2019-12-09 15:40 | US ---
Paracentesis HISTORY: Ascites EXAMINATION TYPE: US paracentesis abd w/image DATE OF EXAM: 12/09/2019 COMPARISON: NONE HISTORY: Ascites. PROCEDURE: Maximal barrier technique was utilized. The skin overlying a suitable pocket of fluid was localized with ultrasound and the overlying skin was prepped and draped. Ultrasound was utilized with sterile technique. Lidocaine was used for local anesthesia and a skin kaci made with a scalpel. Catheter was advanced under direct ultrasound guidance into a suitable pocket of fluid and approximately 6 liters of serious fluid were removed. Catheter was withdrawn and hemostasis achieved. There is no immediat e complication; the patient is discharged in stable condition. IMPRESSION: STATUS POST ULTRASOUND GUIDED PARACENTESIS FOR PALLIATION OF ASCITES. THIS PROCEDURE WA S PERFORMED BY THE UNDERSIGNED.
== END 2019-12-09 15:51 ==
LOC: RADPROMAIN 12:54
PROVIDERS: ATTEND Internal Medicine
DX: R18.8 Other ascites (principal)
CPT/HCPCS: 82565; 85049; 85610; 36415; 49083; P9047

== ENCOUNTER 2019-12-16 13:05 | Day surgery (SDC) | payer MEDICARE ==
[2019-12-16 13:47] LABS: Mean Platelet Volume 7.9
[2019-12-16 13:52] VITALS: TEMP 97.4
[2019-12-16 13:55] LABS: INR 1.3 (<1.2); Prothrombin Time 13.3 sec (9.0-12.0)
[2019-12-16 14:02] LABS: Platelet Count 93 k/uL (150-450)
[2019-12-16] MEDS: ALBUMIN HUMAN 25% 50 ML in EMPTY BAG 1 BAG IVPB SCH ×4 (15:18→16:14)
[2019-12-16 16:17] VITALS: BP 105/52; PULSE 80; RESP 14
--- NOTE | 2019-12-17 08:26 | US ---
Therapeutic paracentesis. DATE OF EXAM: 12/16/2019 CLINICAL HISTORY: Ascites The procedure was discussed with the patient. The risks, complications, benefits, and alternatives we re discussed and any questions were answered. Informed consent was obtained. The patient was placed s upine on the ultrasound table and prepped and draped in the usual sterile fashion. All elements of maximal barrier technique were utilized. Under ultrasound guidance, access into the right lower quadrant was obtained, via the paracentesis catheter system and direct ultrasound guidanc e. Approximately 6.6 liters of straw-colored fluid was removed. The patient was stable throughout the pr ocedure and remained stable upon discharge from Department of Radiology. IMPRESSION: Successful therapeutic paracentesis under ultrasound guidance.
== END 2019-12-16 16:45 | disposition home or self-care (01) ==
LOC: RADPROMAIN 13:05
PROVIDERS: ATTEND Internal Medicine
DX: R18.8 Other ascites (principal)
CPT/HCPCS: 82565; 82947; 85049; 85610; 36415; 49083; P9047

== ENCOUNTER 2019-12-23 12:08 | Day surgery (SDC) | payer MEDICARE ==
[2019-12-23 12:29] VITALS: RESP 20; TEMP 97.4
[2019-12-23 13:05] LABS: Platelet Count 96 k/uL (150-450)
[2019-12-23 13:11] LABS: INR 1.3 (<1.2); Prothrombin Time 12.7 sec (9.0-12.0)
[2019-12-23] MEDS: ALBUMIN HUMAN 25% 50 ML in EMPTY BAG 1 BAG IVPB SCH ×5 (13:21→14:43)
[2019-12-23 15:08] VITALS: BP 99/50; PULSE 72
--- NOTE | 2019-12-23 16:22 | US ---
EXAMINATION TYPE: US paracentesis abd w/image DATE OF EXAM: 12/23/2019 COMPARISON: NONE HISTORY: Ascites. PROCEDURE: Maximal barrier technique was utilized. The skin overlying a suitable pocket of fluid was localized with ultrasound and the overlying skin was prepped and draped. Ultrasound was utilized with sterile technique. Lidocaine was used for local anesthesia and a skin kaci made with a scalpel. Catheter was advanced under direct ultrasound guidance into a suitable pocket of fluid and approximately 6.2 liter s of serous fluid were removed. Catheter was withdrawn and hemostasis achieved. There is no immedia te complication; the patient is discharged in stable condition. IMPRESSION: STATUS POST ULTRASOUND GUIDED PARACENTESIS FOR PALLIATION OF ASCITES. THIS PROCEDURE WA S PERFORMED BY THE UNDERSIGNED.
== END 2019-12-23 15:20 | disposition home or self-care (01) ==
LOC: RADPROMAIN 12:08
PROVIDERS: ATTEND Internal Medicine
DX: R18.8 Other ascites (principal)
CPT/HCPCS: 82565; 82947; 85049; 85610; 36415; 49083; P9047